=== PATIENT | male | born 1950 | race Caucasian/White ===

== ENCOUNTER → 2021-06-12 | Outpatient (REF) | payer SELFPAY ==
[2021-06-12 09:15] LABS: Absolute Lymphocyte Count 1.33 X10^3/uL (0.83-4.51); Absolute Neutrophil Count 5.6 X10^3/uL (2.0-7.7); Basophil# 0.09 X10^3/uL; Basophil% 1.1 % (0-1); Eosinophil# 0.29 X10^3/uL; Eosinophils% 3.5 % (0-5); Hematocrit 40.7 % (40-54); Hemoglobin 13.4 g/dL (13.0-16.5); Lymphocyte # 1.33 X10^3/ul (0.83-4.51); Lymphocyte % 16.2 % (19-41); Mean Corp Hgb Conc 32.9 g/dL (32-36); Mean Corpuscular Hgb 30.5 pg (27.0-32.0); Mean Corpuscular Volume 92.7 fL (80-94); Mean Platelet Vol. 9.8 fl (6.2-12.0); Monocyte# 0.87 X10^3/uL; Monocyte% 10.6 % (0-10); NRBC Flagged by Analyzer 0 % (0-5); Neutrophil # 5.56 X10^3/uL (2.7-7.7); Platelet Count 314 K/mm3 (150-450); RBC Distribution Width CV 14.6 % (11.6-14.6); RBC Distribution Width SD 50.1 fl (35.1-43.9); Red Blood Count 4.39 M/mm3 (4.6-6.2); White Blood Count 8.2 K/mm3 (4.4-11.0)
[2021-06-12 09:29] LABS: Anion Gap 6 (5-15); BUN 16 mg/dL (7-18); BUN/Creat Ratio 13.4 RATIO (10-20); Calcium,Total 9.3 mg/dL (8.5-10.1); Chloride 109 mmol/L (98-107); Creatinine, Serum 1.19 mg/dL (0.70-1.30); EST Glomerular Filtration Rate 64 mL/min (>60); Est Glom Filt Rate - Afr Amer 78 mL/min (>60); Glucose 116 mg/dL (74-106); Potassium 4.5 mmol/L (3.5-5.1); Sodium Level 139 mmol/L (136-145)
== END | disposition home or self-care (01) ==
LOC: OLS.SW1020 04:00
PROVIDERS: PCP Preventive Medicine Occupational Medicine; Referring Provider Internal Medicine; Visit Provider Internal Medicine
DX: I11.0 Hypertensive heart disease with heart failure (principal); I50.9 Heart failure, unspecified; I48.91 Unspecified atrial fibrillation
CPT/HCPCS: 36415; 80048; 85025

== ENCOUNTER 2022-01-08 20:35 | Observation (INO) | payer MEDICAID, SELFPAY ==
[2022-01-08 20:39] VITALS: BP 87/53; PULSE 41; RESP 18; TEMP 37.1; O2SAT 98; BMI 25.0
[2022-01-08 20:53] VITALS: BP 82/52; PULSE 40; RESP 16; O2SAT 99
--- NOTE | 2022-01-08 21:07 | EKG12_ITS ---
Test Reason : GEN ILLNESS Blood Pressure : / mmHG Vent. Rate : 041 BPM Atrial Rate : 256 BPM P-R Int : 000 ms QRS Dur : 076 ms QT Int : 532 ms P-R-T Axes : 000 019 062 degrees QTc Int : 438 ms Atrial flutter Nonspecific ST and T wave abnormality Abnormal ECG Confirmed by BENIGNO ASCENCIO, JAGDISH ([id number]), website/blog editor ALONDRA WATKINS ([id number]) on 01/12/2022 1:16:26 PM Referred By: NAYAN Confirmed By:JAGDISH PELAEZ MD
[2022-01-08] MEDS: 0.9% Normal Saline 1,000 ML 1000 ML IV (21:17)
[2022-01-08 21:29] LABS: Absolute Lymphocyte Count 0.99 X10^3/uL (0.83-4.51); Absolute Neutrophil Count 6.9 X10^3/uL (2.0-7.7); Basophil# 0.05 X10^3/uL; Basophil% 0.6 % (0-1); Eosinophil# 0.05 X10^3/uL; Eosinophils% 0.6 % (0-5); Hematocrit 36.5 % (40-54); Hemoglobin 12.1 g/dL (13.0-16.5); Lymphocyte # 0.99 X10^3/ul (0.83-4.51); Lymphocyte % 11.6 % (19-41); Mean Corp Hgb Conc 33.2 g/dL (32-36); Mean Corpuscular Hgb 30.8 pg (27.0-32.0); Mean Corpuscular Volume 92.9 fL (80-94); Monocyte# 0.48 X10^3/uL; Monocyte% 5.6 % (0-10); NRBC Flagged by Analyzer 0 % (0-5); Neutrophil # 6.92 X10^3/uL (2.7-7.7); Neutrophil % 80.7 % (47-70); Platelet Count 309 K/mm3 (150-450); RBC Distribution Width CV 14.2 % (11.6-14.6); RBC Distribution Width SD 48.2 fl (35.1-43.9); Red Blood Count 3.93 M/mm3 (4.6-6.2); White Blood Count 8.6 K/mm3 (4.4-11.0)
[2022-01-08 21:48] LABS: ALB/GLOB Ratio 0.8 RATIO (0.9-2.4); AST(SGOT) 27 U/L (15-37); Alanine Aminotransfer ALT/SGPT 31 U/L (16-61); Albumin, Serum 3.2 g/dL (3.2-5.0); Alkaline Phosphatase 81 U/L (45-117); Anion Gap 6 (5-15); BUN 23 mg/dL (7-18); BUN/Creat Ratio 11.7 RATIO (10-20); Chloride 108 mmol/L (98-107); Creatinine, Serum 1.97 mg/dL (0.70-1.30); EST Glomerular Filtration Rate 36 mL/min (>60); Est Glom Filt Rate - Afr Amer 43 mL/min (>60); Estimated Creatinine Clearance 36.63 ml/min; Globulin 3.8 g/dL (2.2-4.2); Glucose 157 mg/dL (74-106); Potassium 4.4 mmol/L (3.5-5.1); Sodium Level 138 mmol/L (136-145); Troponin-I HS 89 pg/mL (3.0-78.0)
--- NOTE | 2022-01-08 21:49 | RAD_ITS ---
INDICATION: Chest pain EXAMINATION/TECHNIQUE: X-RAY - XR Chest 1 View COMPARISON: None. FINDINGS: LINES/DEVICES: None. LUNGS: Low normal lung volumes. Mild perihilar interstitial thickening. No consolidation or effusion. No pneumothorax. MEDIASTINUM AND CARDIOVASCULAR STRUCTURES: Cardiac silhouette not enlarged. Mild aortic atherosclerosis. BONES AND SOFT TISSUES: Unremarkable. Bilateral glenohumeral and acromioclavicular osteoarthritis RAD/Chest 1 View (Portable) IMPRESSION: Low lung volumes with mild interstitial crowding or trace edema. No evidence of consolidative pneumonia Electronically Signed: Trevon Charles MD at 22:12 EDT ,
[2022-01-08 22:27] VITALS: BP 121/55; PULSE 39; RESP 16; O2SAT 96
[2022-01-08 22:33] LABS: Bacteria 0 SEEN /hpf (None Seen); Mucous, Urine 0 SEEN /hpf (<or=2+)
[2022-01-08 23:00] VITALS: BP 103/78; PULSE 38; RESP 16; O2SAT 98
[2022-01-08 23:05] LABS: Color, Urine Yellow (Yellow); Glucose, Dipstick Normal (Normal); Ketone-Dipstick 5 mg/dl (Negative); Leukocyte Esterase-Dipstick 25 /ul (Negative); Nitrite-Dipstick Negative (Negative); Occult Blood-Urine 10 /ul (Negative); Protein-Dipstick 30 mg/dl (Negative); Specific Gravity, Urine 1.025 (1.002-1.030); Urine Bilirubin Dipstick 1 mg/dL (Negative); Urine Clarity Sl. Cloudy (Clear); Urine Urobilinogen 1 mg/dl (Normal)
[2022-01-08 23:11] LABS: Red Blood Cells-Urine 0-5 SEEN /hpf (0-5); Squamous Epithelial Cells - UA 0-5 SEEN /hpf (0-5); White Blood Cells 0-5 SEEN /hpf (0-5)
[2022-01-08 23:12] LABS: Amorphous Sediment 1+ URATE
[2022-01-08] MEDS: Ondansetron 4 MG/2 ML Vial IV (23:28)
--- NOTE | 2022-01-08 23:29 | EX.ED.DYSGE1 ---
HPI History of Present Illness Chief Complaint: General Illness Informant: patient Onset/Context/Timing Onset: Today Context: Gradual Onset Timing: Continuous Quality: Burning Location: Generalized Worsened by: Nothing Relieved by: Nothing Narrative Narrative: Patient presents with bradycardia and generalized pain that began today. Patient states he hurts all over. Patient describes his pain as burning. Patient states nothing makes it better and nothing makes it worse. Patient admits to some lightheadedness. Patient admits to some diarrhea. Patient denies any nausea or vomiting. Patient denies any shortness of breath or cough. Patient denies any palpitations. Patient denies any fevers or chills. Patient apparently had a positive COVID-19 test at the [facility]. [facility] Medical History Anemia Anxiety Atrial flutter CHF (congestive heart failure) COVID-19 Fracture of first lumbar vertebra HTN (hypertension) Hyperlipidemia YULIANA (obstructive sleep apnea) Other cervical disc degeneration, unspecified cervical region Syncope and collapse TIA (transient ischemic attack) Home Medications apixaban 5 mg tablet 5 mg PO BID 01/08/22 [History Last Taken Unknown] buspirone 5 mg tablet 5 mg PO DAILY 01/08/22 [History Last Taken Unknown] clonidine HCl 0.1 mg tablet 0.1 mg PO BID 01/08/22 [History Last Taken Unknown] diltiazem HCl 360 mg capsule,extended release 24 hr 360 mg PO DAILY 01/08/22 [History Last Taken Unknown] folic acid 1 mg tablet 1 mg PO DAILY 01/08/22 [History Last Taken Unknown] lisinopril 40 mg tablet 40 mg PO DAILY 01/08/22 [History Last Taken Unknown] metoprolol succinate 25 mg capsule sprinkle, ext. release 24 hr 25 mg PO BID 01/08/22 [History Last Taken Unknown] pantoprazole 40 mg tablet,delayed release 40 mg PO DAILY 01/08/22 [History Last Taken Unknown] sertraline 50 mg tablet (Zoloft) 50 mg PO DAILY 01/08/22 [History Last Taken Unknown] thiamine HCl (vitamin B1) 100 mg tablet 100 mg PO DAILY 01/08/22 [History Last Taken Unknown] Allergy/AdvReac Type Severity Reaction Status Date / Time amlodipine Allergy NEEDS Verified 01/08/22 20:38 FOLLOW-UP amoxicillin [From Amoxil] Allergy NEEDS Verified 01/08/22 20:38 FOLLOW-UP erythromycin base Allergy NEEDS Verified 01/08/22 20:38 FOLLOW-UP famotidine [From Pepcid] Allergy NEEDS Verified 01/08/22 20:38 FOLLOW-UP fish oil Allergy NEEDS Verified 01/08/22 20:38 FOLLOW-UP hydrochlorothiazide Allergy NEEDS Verified 01/08/22 20:38 FOLLOW-UP hydroxyzine Allergy NEEDS Verified 01/08/22 20:38 FOLLOW-UP lorazepam Allergy NEEDS Verified 01/08/22 20:38 FOLLOW-UP Social History Smoking Status: Never smoker ROS ROS ED Constitutional Constitutional ED: Denies chills or fever(s) Eyes Eyes: Reports blurry vision; Denies diplopia ENT ENT ED: Reports sore throat; Denies rhinorrhea Cardiovascular Cardiovascular: Reports chest pain; Denies palpitations Respiratory/Chest Respiratory/Chest: Denies cough or dyspnea Gastrointestinal Gastrointestinal: Reports abdominal pain and diarrhea; Denies nausea or vomiting Genitourinary Genitourinary ED: Denies dysuria or hematuria Musculoskeletal Musculoskeletal: Reports back pain and neck pain Integumentary Denies abscess or rash Neurologic Neurologic: Reports headache(s); Denies weakness Allergic/Immunologic Allergic/Immunologic ED: Denies mouth swelling or urticaria EXAM Physical Exam Const Vital Signs: 01/08/22 20:39 01/08/22 20:42 01/08/22 20:53 Temperature 98.7 F Temperature Source Temporal Pulse Rate 41 L 40 L Respiratory Rate 18 16 Respiratory Effort Normal Respiratory Pattern Normal Blood Pressure 87/53 L 82/52 L Blood Pressure Mean 64 62 Pulse Ox 98 99 Oxygen Delivery Method Room Air Room Air 01/08/22 22:27 01/08/22 23:00 01/08/22 23:39 Temperature 98.0 F Temperature Source Temporal Pulse Rate 39 L 38 L 58 L Respiratory Rate 16 16 20 H Respiratory Effort Respiratory Pattern Blood Pressure 121/55 H 103/78 134/75 H Blood Pressure Mean 77 86 94 Pulse Ox 96 98 94 Oxygen Delivery Method Room Air Room Air Room Air Positive well nourished and well developed General Appearance ED: well developed and NAD HEENT Reports dry mucous membranes Mouth ED: Yes dry mucous membranes Mouth: dry mucous membranes Neck supple and no JVD Resp normal respiratory effort and clear to auscultation bilaterally Cardio Rate: bradycardia Rhythm: abnormal rhythm irregularly irregular GI normal to inspection, nondistended, normoactive bowel sounds, non-tender, non-distended and hepatosplenomegaly Palpation: soft Neuro CN's II-XII intact bilaterally and no sensory deficits noted Sensorium / Orientation: alert Motor Exam: general weakness Psych mental status grossly normal MDM MDM MDM Narrative Medical decision making narrative: Patient was given IV fluids. CBC shows a mild anemia with a hemoglobin of 12.1 and hematocrit 36.5. Comprehensive metabolic profile shows a BUN of 23 and creatinine of 1.97. These were increased from previous results. Lactate was slightly elevated 2.3. High-sensitivity troponin was slightly elevated at 89. Urinalysis does not show any evidence of urinary tract infection or hematuria. Portable 1 view chest x-ray was obtained. On my interpretation, lung tracy are diminished. There is normal cardiac silhouette. Bony thorax is normal. There is no acute process noted. Radiologist also interpreted the x-ray and agrees. Case was discussed with cardiology, Dr. Soares. He had no further recommendations. Patient's med list was reviewed. Patient is on Cardizem and metoprolol. These will be withheld. Case was discussed with hospitalist, Dr. Alvarado. She will admit the patient to PCU. Patient understood and was agreeable with the plan. All questions were answered. Lab Data Attestation: I reviewed the patient's lab results. Labs: Laboratory Results - last 24 hr 01/08/22 01/08/22 01/08/22 20:50 21:00 21:00 WBC 8.6 RBC 3.93 L Hgb 12.1 L Hct 36.5 L MCV 92.9 MCH 30.8 MCHC 33.2 RDW Std Deviation 48.2 H RDW Coeff of Roberto 14.2 Plt Count 309 MPV 10.0 Immature Gran % (Auto) 0.900 Neut % (Auto) 80.7 H Lymph % (Auto) 11.6 L [place] % (Auto) 5.6 Eos % (Auto) 0.6 Baso % (Auto) 0.6 Absolute Neuts (auto) 6.9 Absolute Lymphs (auto) 0.99 Nucleated RBC % 0 Sodium 138 Potassium 4.4 Chloride 108 H Carbon Dioxide 24.0 Anion Gap 6 BUN 23 H Creatinine 1.97 H Estim Creat Clear Calc 36.63 Est GFR (MDRD) Af Amer 43 L Est GFR (MDRD) Non-Af 36 L BUN/Creatinine Ratio 11.7 Glucose 157 H Lactic Acid 2.3 H* Calcium 8.0 L Total Bilirubin 0.40 AST 27 ALT 31 Alkaline Phosphatase 81 Troponin I High Sens 89 H Total Protein 7.0 Albumin 3.2 Globulin 3.8 Albumin/Globulin Ratio 0.8 L Urine Color Urine Clarity Urine pH Ur Specific [place] Urine Protein Urine Glucose (UA) Urine Ketones Urine Occult Blood Urine Nitrite Urine Bilirubin Urine Urobilinogen Ur Leukocyte Esterase Urine RBC Urine WBC Ur Squamous Epith Cells Amorphous Sediment Urine Bacteria Urine Mucus 01/08/22 22:30 WBC RBC Hgb Hct MCV MCH MCHC RDW Std Deviation RDW Coeff of Roberto Plt Count MPV Immature Gran % (Auto) Neut % (Auto) Lymph % (Auto) [place] % (Auto) Eos % (Auto) Baso % (Auto) Absolute Neuts (auto) Absolute Lymphs (auto) Nucleated RBC % Sodium Potassium Chloride Carbon Dioxide Anion Gap BUN Creatinine Estim Creat Clear Calc Est GFR (MDRD) Af Amer Est GFR (MDRD) Non-Af BUN/Creatinine Ratio Glucose Lactic Acid Calcium Total Bilirubin AST ALT Alkaline Phosphatase Troponin I High Sens Total Protein Albumin Globulin Albumin/Globulin Ratio Urine Color Yellow Urine Clarity Sl. Cloudy Urine pH 5.0 Ur Specific [place] 1.025 Urine Protein 30 H Urine Glucose (UA) Normal Urine Ketones 5 H Urine Occult Blood 10 H Urine Nitrite Negative Urine Bilirubin 1 H Urine Urobilinogen 1 H Ur Leukocyte Esterase 25 H Urine RBC 0-5 SEEN Urine WBC 0-5 SEEN Ur Squamous Epith Cells 0-5 SEEN Amorphous Sediment 1+ URATE Urine Bacteria 0 SEEN Urine Mucus 0 SEEN Radiography Chest X-Ray - ED: 1 View, Read by ED Physician, Read by Radiologist and No Acute Disease Diagnostic Testing: Clinical Impression(s) from Imaging Studies Chest X-Ray 01/08/22 21:49 IMPRESSION: Low lung volumes with mild interstitial crowding or trace edema. No evidence of consolidative pneumonia Electronically Signed: Trevon Charles MD at 22:12 EDT Reading Location ID and State: [facility] / [place] Tel , Service support , EKG Initial EKG: Attestation: I personally reviewed and interpreted this EKG as follows: Interpretation: Atrial Flutter (41) and Non-Specific ST Changes Prior EKG tracings: not available for review Prior: No Prior Discharge Plan Dx/Rx/DC Orders Clinical Impression: Bradycardia, Atrial flutter, Acute kidney injury Disposition Disposition: Acute Care Hospital [facility]
[2022-01-08 23:39] VITALS: BP 134/75; PULSE 58; RESP 20; TEMP 36.7; O2SAT 94
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
[2022-01-08 23:53] VITALS: BMI 23.8
[2022-01-09] VITALS (17 sets, daily range): BP systolic 132–170; BP diastolic 70–113; PULSE 64–136; RESP 12–18; TEMP 36.2–37.1; O2SAT 97–99
[2022-01-09 00:06] LABS: Lactic Acid 2.3 mmol/L (0.4-1.9)
[2022-01-09 00:32] LABS: Thyroid Stim Hormone (TSH) 4.78 uIU/mL (0.358-3.74)
[2022-01-09 01:12] LABS: Reflex Lactate? Y
[2022-01-09] MEDS: Acetaminophen 325 MG Tablet 650 MG PO ×2 (01:49→13:14)
[2022-01-09] MEDS: Lactated Ringers 1,000 ML 100 ML IV ×2 (01:49→11:20)
[2022-01-09 02:00] LABS: Lactic Acid 1.4 mmol/L (0.4-1.9); Troponin-I HS 54 pg/mL (3.0-78.0)
[2022-01-09 03:24] LABS: Absolute Lymphocyte Count 0.76 X10^3/uL (0.83-4.51); Absolute Neutrophil Count 5.5 X10^3/uL (2.0-7.7); Basophil# 0.01 X10^3/uL; Basophil% 0.2 % (0-1); Hematocrit 35.5 % (40-54); Hemoglobin 11.8 g/dL (13.0-16.5); Lymphocyte # 0.76 X10^3/ul (0.83-4.51); Lymphocyte % 11.4 % (19-41); Mean Corp Hgb Conc 33.2 g/dL (32-36); Mean Corpuscular Hgb 30.7 pg (27.0-32.0); Mean Corpuscular Volume 92.4 fL (80-94); Mean Platelet Vol. 9.6 fl (6.2-12.0); Monocyte# 0.31 X10^3/uL; Monocyte% 4.7 % (0-10); NRBC Flagged by Analyzer 0 % (0-5); Neutrophil # 5.52 X10^3/uL (2.7-7.7); Neutrophil % 83.1 % (47-70); Platelet Count 226 K/mm3 (150-450); RBC Distribution Width CV 14.2 % (11.6-14.6); RBC Distribution Width SD 47.7 fl (35.1-43.9); Red Blood Count 3.84 M/mm3 (4.6-6.2); White Blood Count 6.6 K/mm3 (4.4-11.0)
[2022-01-09 03:54] LABS: Troponin-I HS 48 pg/mL (3.0-78.0)
[2022-01-09 03:56] LABS: ALB/GLOB Ratio 0.8 RATIO (0.9-2.4); AST(SGOT) 48 U/L (15-37); Alanine Aminotransfer ALT/SGPT 54 U/L (16-61); Albumin, Serum 3.1 g/dL (3.2-5.0); Alkaline Phosphatase 105 U/L (45-117); Anion Gap 7 (5-15); BUN 24 mg/dL (7-18); BUN/Creat Ratio 15.4 RATIO (10-20); Calcium,Total 8.1 mg/dL (8.5-10.1); Chloride 110 mmol/L (98-107); Creatinine, Serum 1.56 mg/dL (0.70-1.30); EST Glomerular Filtration Rate 47 mL/min (>60); Est Glom Filt Rate - Afr Amer 57 mL/min (>60); Estimated Creatinine Clearance 46.26 ml/min; Globulin 3.7 g/dL (2.2-4.2); Glucose 145 mg/dL (74-106); Magnesium 2.3 mg/dL (1.6-2.6); Phosphorus 3.4 mg/dL (2.5-4.9); Potassium 4.4 mmol/L (3.5-5.1); Protein, Total 6.8 g/dL (6.4-8.2); Sodium Level 137 mmol/L (136-145)
--- NOTE | 2022-01-09 09:31 | CASEMGMT ---
Addendum entered by Venessa Baltazar 01/09/22 09:51: Discharge Remote Sensing Advisor Maribeth from the [facility] reached out and patient would need pre-cert to be able to return to [facility]. Ryan MCWILLIAMS Groundskeeping Maintenance Original Note: Discharge Remote Sensing Advisor This commercial lines underwriter sent updates to Maribeth at the [facility]. Ryan MCWILLIAMS Groundskeeping Maintenance
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
[2022-01-09] MEDS: dexAMETHasone 4 MG Tablet 6 MG PO (11:29)
[2022-01-09] MEDS: Pantoprazole Sodium 40 MG Tablet PO (11:30)
[2022-01-09] MEDS: cloNIDine HCl 0.1 MG Tablet PO ×2 (11:30→20:36)
[2022-01-09] MEDS: Thiamine Hydrochloride 100 MG Tablet PO (11:30)
[2022-01-09] MEDS: Folic Acid 1 MG Tablet PO (11:30)
[2022-01-09] MEDS: APIXABAN 5 MG TABLET PO ×2 (11:30→20:36)
[2022-01-09] MEDS: Lisinopril 40 MG Tablet PO (11:30)
[2022-01-09] MEDS: busPIRone 5 MG Tablet PO (11:30)
[2022-01-09] MEDS: Sertraline 50 MG Tablet PO (11:30)
--- NOTE | 2022-01-09 12:11 | CON.PCM.CA_ITS ---
Documented by User: Reynaldo Markham MANAGER ACTION, MANAGER ACTION-C 01/09/22 12:20 Assessment & Plan Assessment/Plan (1) Atrial flutter: PLAN: He appears to have a history of underlying atrial flutter. It is encouraging that his high sensitive troponin has been negative x2. We will continue to hold off on rate limiting medications. It is also encouraging that his heart rate is improved since stopping both metoprolol succinate and diltiazem. We will reconsider resuming metoprolol succinate if he develops increased heart rates. We will continue to monitor for ongoing bradycardia that may be associated with side effect of clonidine therapy. He will continue Eliquis for CVA protection. If he continues to have bradycardia despite rate limiting medications and associated symptoms, we will consider permanent pacemaker placement, that may include Micra device. (2) Bradycardia: (3) COVID-19: PLAN: Plan Patient's case was reviewed with Dr. Monzon. See his dictation for further details regarding plan. HPI Consult Data Date of Consult: 01/09/22 HPI Narrative HPI Narrative: MONICA HAN, is a 71 M who presented to the emergency department 01/08/2022 from a alf ([facility]) with general illness and bradycardia. He has a past medical history of atrial flutter, congestive heart failure, hypertension, hyperlipidemia, YULIANA, and TIA. Prior to presentation he acknowledged diarrhea, lightheadedness, and positive COVID-19 testing. His EKG showed atrial flutter at a rate of 41 bpm. His home medication of metoprolol and Cardizem was held. Due to blood pressure 87/53 he received IV fluids and blood pressure improved. His initial troponin was noted to be 89. He was admitted for further evaluation. Cardiology was consulted due to bradycardia and elevated troponin. [facility] Medical History Anemia Anxiety Atrial flutter CHF (congestive heart failure) COVID-19 Fracture of first lumbar vertebra HTN (hypertension) Hyperlipidemia YULIANA (obstructive sleep apnea) Other cervical disc degeneration, unspecified cervical region Syncope and collapse TIA (transient ischemic attack) Home Medications apixaban 5 mg tablet 5 mg PO BID 01/08/22 [History Last Taken Unknown] buspirone 5 mg tablet 5 mg PO DAILY 01/08/22 [History Last Taken Unknown] clonidine HCl 0.1 mg tablet 0.1 mg PO BID 01/08/22 [History Last Taken Unknown] diltiazem HCl 360 mg capsule,extended release 24 hr 360 mg PO DAILY 01/08/22 [History Last Taken Unknown] folic acid 1 mg tablet 1 mg PO DAILY 01/08/22 [History Last Taken Unknown] lisinopril 40 mg tablet 40 mg PO DAILY 01/08/22 [History Last Taken Unknown] metoprolol succinate 25 mg capsule sprinkle, ext. release 24 hr 25 mg PO BID 01/08/22 [History Last Taken Unknown] pantoprazole 40 mg tablet,delayed release 40 mg PO DAILY 01/08/22 [History Last Taken Unknown] sertraline 50 mg tablet (Zoloft) 50 mg PO DAILY 01/08/22 [History Last Taken U nknown] thiamine HCl (vitamin B1) 100 mg tablet 100 mg PO DAILY 01/08/22 [History Last Taken Unknown] Allergy/AdvReac Type Severity Reaction Status Date / Time amlodipine Allergy NEEDS Verified 01/08/22 20:38 FOLLOW-UP amoxicillin [From Amoxil] Allergy NEEDS Verified 01/08/22 20:38 FOLLOW-UP erythromycin base Allergy NEEDS Verified 01/08/22 20:38 FOLLOW-UP famotidine [From Pepcid] Allergy NEEDS Verified 01/08/22 20:38 FOLLOW-UP fish oil Allergy NEEDS Verified 01/08/22 20:38 FOLLOW-UP hydrochlorothiazide Allergy NEEDS Verified 01/08/22 20:38 FOLLOW-UP hydroxyzine Allergy NEEDS Verified 01/08/22 20:38 FOLLOW-UP lorazepam Allergy NEEDS Verified 01/08/22 20:38 FOLLOW-UP Family History unable to obtain Surgical History H/O knee surgery Social History (Updated 01/09/22 @ 00:[address] Jerrica Alvarado, ) housing: alf Smoking Status: Never smoker alcohol intake: former substance use type: does not use ROS ROS Narrative Deferred due to COVID-19 precautions and attempt to reduce the spread of COVID- 19. Recommendations will be made based on evaluation of patient's electronic medical chart, paper chart, telemetry, and documentation from other providers/staff. Physical Exam Narrative Physical exam deferred due to COVID-19 precautions and attempt to reduce spread of COVID-19. Risk Stratification Risk Stratification Applicable: Yes Age >/= 65: Yes >/= 3 CAD Risk Factors (HTN, HLD, DM, family hx of CAD, or current smoker): No Aspirin Use in the Past 7 Days: No Severe Angina (>/= episodes in 24 hours): No EKG ST Changes >/= 0.5mm: No Positive Cardiac Marker: No RODRIGUE Risk Stratification Score: 1 RODRIGUE % Risk: 5% Risk Objective Data Vital Signs: Vital Signs Temp Pulse Resp BP Pulse Ox O2 Del Method 97.3 F L 64 16 149/76 H 99 Room Air 01/09/22 11:12 01/09/22 11:12 01/09/22 11:12 01/09/22 11:12 01/09/22 11:12 01/09/22 11:12 Oxygen Delivery Method Room Air Weight: 171 lb 4.787 oz Body Mass Index (BMI) 23.8 Intake & Output: Intake and Output for Last 24 Hours 01/07/22 01/08/22 01/09/22 23:59 23:59 23:59 Intake Total 1000 / 1000 951.67 / 951.67 Output Total 200 / 200 Balance 1000 / 1000 751.67 / 751.67 Lab / Micro Data Result Diagrams: 01/09/22 03:17 01/09/22 03:17 Labs: Laboratory Results - last 24 hr 01/08/22 20:50: Lactic Acid 2.3 H* 01/08/22 21:00: WBC 8.6, RBC 3.93 L, Hgb 12.1 L, Hct 36.5 L, MCV 92.9, MCH 30.8, MCHC 33.2, RDW Std Deviation 48.2 H, RDW Coeff of Roberto 14.2, Plt Count 309, MPV 10.0, Immature Gran % (Auto) 0.900, Neut % (Auto) 80.7 H, Lymph % (Auto) 11.6 L, Power % (Auto) 5.6, Eos % (Auto) 0.6, Baso % (Auto) 0.6, Absolute Neuts (auto) 6.9, Absolute Lymphs (auto) 0.99, Nucleated RBC % 0 01/08/22 21:00: Sodium 138, Potassium 4.4, Chloride 108 H, Carbon Dioxide 24.0, Anion Gap 6, BUN 23 H, Creatinine 1.97 H, Estim Creat Clear Calc 36.63, Est GFR (MDRD) Af Amer 43 L, Est GFR (MDRD) Non-Af 36 L, BUN/Creatinine Ratio 11.7, Glucose 157 H, Calcium 8.0 L, Total Bilirubin 0.40, AST 27, ALT 31, Alkaline Phosphatase 81, Troponin I High Sens 89 H, Total Protein 7.0, Albumin 3.2, Globulin 3.8, Albumin/Globulin Ratio 0.8 L 01/08/22 21:00: TSH 4.78 H 01/08/22 22:30: Urine Color Yellow, Urine Clarity Sl. Cloudy, Urine pH 5.0, Ur Specific [place] 1.025, Urine Protein 30 H, Urine Glucose (UA) Normal, Urine Ketones 5 H, Urine Occult Blood 10 H, Urine Nitrite Negative, Urine Bilirubin 1 H, Urine Urobilinogen 1 H, Ur Leukocyte Esterase 25 H, Urine RBC 0-5 SEEN, Urine WBC 0-5 SEEN, Ur Squamous Epith Cells 0-5 SEEN, Amorphous Sediment 1+ URATE, Urine Bacteria 0 SEEN, Urine Mucus 0 SEEN 01/08/22 23:46: COVID-19 (LELE) Detected 01/09/22 01:30: Troponin I High Sens 54 01/09/22 01:30: Lactic Acid 1.4 01/09/22 03:17: WBC 6.6, RBC 3.84 L, Hgb 11.8 L, Hct 35.5 L, MCV 92.4, MCH 30.7, MCHC 33.2, RDW Std Deviation 47.7 H, RDW Coeff of Roberto 14.2, Plt Count 226, MPV 9.6, Immature Gran % (Auto) 0.600, Neut % (Auto) 83.1 H, Lymph % (Auto) 11.4 L, Power % (Auto) 4.7, Eos % (Auto) 0.0, Baso % (Auto) 0.2, Absolute Neuts (auto) 5.5, Absolute Lymphs (auto) 0.76 L, Nucleated RBC % 0 01/09/22 03:17: Sodium 137, Potassium 4.4, Chloride 110 H, Carbon Dioxide 20.0 L , Anion Gap 7, BUN 24 H, Creatinine 1.56 H, Estim Creat Clear Calc 46.26, Est GFR (MDRD) Af Amer 57 L, Est GFR (MDRD) Non-Af 47 L, BUN/Creatinine Ratio 15.4, Glucose 145 H, Calcium 8.1 L, Phosphorus 3.4, Magnesium 2.3, Total Bilirubin 0.40, AST 48 H, ALT 54, Alkaline Phosphatase 105, Total Protein 6.8, Albumin 3.1 L, Globulin 3.7, Albumin/Globulin Ratio 0.8 L 01/09/22 03:17: Troponin I High Sens 48 Micro: Microbiology 01/08/22 21:20 Nasal Secretion SARS-CoV-2 & FLU Antigen (Rapid) - Final Cardiology Labs/Tests 01/08/22 20:50: Lactic Acid 2.3 H* 01/08/22 21:00: WBC 8.6, RBC 3.93 L, Hgb 12.1 L, Hct 36.5 L, MCV 92.9, MCH 30.8, MCHC 33.2, Plt Count 309, MPV 10.0, Immature Gran % (Auto) 0.900, Neut % (Auto) 80.7 H, Lymph % (Auto) 11.6 L, Power % (Auto) 5.6, Eos % (Auto) 0.6, Baso % (Auto) 0.6, Absolute Neuts (auto) 6.9, Nucleated RBC % 0 01/08/22 21:00: Sodium 138, Potassium 4.4, Chloride 108 H, Carbon Dioxide 24.0, Anion Gap 6, BUN 23 H, Creatinine 1.97 H, Est GFR (MDRD) Af Amer 43 L, Est GFR (MDRD) Non-Af 36 L, BUN/Creatinine Ratio 11.7, Glucose 157 H, Calcium 8.0 L, Total Bilirubin 0.40 01/08/22 22:30: Urine Color Yellow, Urine Clarity Sl. Cloudy, Urine pH 5.0, Ur Specific [place] 1.025, Urine Protein 30 H, Urine Glucose (UA) Normal, Urine Ketones 5 H, Urine Occult Blood 10 H, Urine Nitrite Negative, Urine Bilirubin 1 H, Urine Urobilinogen 1 H, Ur Leukocyte Esterase 25 H, Urine RBC 0-5 SEEN, Urine WBC 0-5 SEEN 01/09/22 01:30: Lactic Acid 1.4 01/09/22 03:17: WBC 6.6, RBC 3.84 L, Hgb 11.8 L, Hct 35.5 L, MCV 92.4, MCH 30.7, MCHC 33.2, Plt Count 226, MPV 9.6, Immature Gran % (Auto) 0.600, Neut % (Auto) 83.1 H, Lymph % (Auto) 11.4 L, Power % (Auto) 4.7, Eos % (Auto) 0.0, Baso % (Auto) 0.2, Absolute Neuts (auto) 5.5, Nucleated RBC % 0 01/09/22 03:17: Sodium 137, Potassium 4.4, Chloride 110 H, Carbon Dioxide 20.0 L , Anion Gap 7, BUN 24 H, Creatinine 1.56 H, Est GFR (MDRD) Af Amer 57 L, Est GFR (MDRD) Non-Af 47 L, BUN/Creatinine Ratio 15.4, Glucose 145 H, Calcium 8.1 L, Phosphorus 3.4, Magnesium 2.3, Total Bilirubin 0.40 Rhythm: EKG: ECHO: Stress Test: Cardiac Cath: PCI: CT Surgery: Holter monitor: EPS: PPM: CXR: Chest CT Scan: Radiography Diagnostic Testing: Radiology Impression Chest X-Ray 01/08/22 21:49 IMPRESSION: Low lung volumes with mild interstitial crowding or trace edema. No evidence of consolidative pneumonia Electronically Signed: Trevon Charles MD at 22:12 EDT Reading Location ID and State: [id number] [facility] Tel , Service support , Documented by User: Dr. Clarisse Monzon MD 01/09/22 13:47 Assessment & Plan Assessment/Plan (1) Atrial flutter: (2) Bradycardia: (3) COVID-19: PLAN: Plan Patient's case was reviewed with Dr. Monzon. See his dictation for further details regarding plan. I independently reviewed the medical record of this patient including EKG cardiac monitors current cardiac medication and I formulated cardiac care plan as per midlevel documentation we will continue current medical treatment. Patient can be set up for an outpatient follow-up with cardiology team. Echocardiogram to evaluate his LV function and to continue on anticoagulation and rate control for atrial fibrillation/atrial flutter HPI Consult Data Date of Consult: 01/09/22 [facility] Medical History Anemia Anxiety Atrial flutter CHF (congestive heart failure) COVID-19 Fracture of first lumbar vertebra HTN (hypertension) Hyperlipidemia YULIANA (obstructive sleep apnea) Other cervical disc degeneration, unspecified cervical region Syncope and collapse TIA (transient ischemic attack) Home Medications apixaban 5 mg tablet 5 mg PO BID 01/08/22 [History Last Taken Unknown] buspirone 5 mg tablet 5 mg PO DAILY 01/08/22 [History Last Taken Unknown] clonidine HCl 0.1 mg tablet 0.1 mg PO BID 01/08/22 [History Last Taken Unknown] diltiazem HCl 360 mg capsule,extended release 24 hr 360 mg PO DAILY 01/08/22 [History Last Taken Unknown] folic acid 1 mg tablet 1 mg PO DAILY 01/08/22 [History Last Taken Unknown] lisinopril 40 mg tablet 40 mg PO DAILY 01/08/22 [History Last Taken Unknown] metoprolol succinate 25 mg capsule sprinkle, ext. release 24 hr 25 mg PO BID 01/08/22 [History Last Taken Unknown] pantoprazole 40 mg tablet,delayed release 40 mg PO DAILY 01/08/22 [History Last Taken Unknown] sertraline 50 mg tablet (Zoloft) 50 mg PO DAILY 01/08/22 [History Last Taken Unknown] thiamine HCl (vitamin B1) 100 mg tablet 100 mg PO DAILY 01/08/22 [History Last T aken Unknown] Allergy/AdvReac Type Severity Reaction Status Date / Time amlodipine Allergy NEEDS Verified 01/08/22 20:38 FOLLOW-UP amoxicillin [From Amoxil] Allergy NEEDS Verified 01/08/22 20:38 FOLLOW-UP erythromycin base Allergy NEEDS Verified 01/08/22 20:38 FOLLOW-UP famotidine [From Pepcid] Allergy NEEDS Verified 01/08/22 20:38 FOLLOW-UP fish oil Allergy NEEDS Verified 01/08/22 20:38 FOLLOW-UP hydrochlorothiazide Allergy NEEDS Verified 01/08/22 20:38 FOLLOW-UP hydroxyzine Allergy NEEDS Verified 01/08/22 20:38 FOLLOW-UP lorazepam Allergy NEEDS Verified 01/08/22 20:38 FOLLOW-UP Family History unable to obtain Surgical History H/O knee surgery Social History (Updated 01/09/22 @ 00:[address] Jerrica Alvarado, DO) housing: alf Smoking Status: Never smoker alcohol intake: former substance use type: does not use Risk Stratification Age >/= 65: Yes RODRIGUE Risk Stratification Score: 1 RODRIGUE % Risk: 5% Risk Lab / Micro Data Result Diagrams: 01/09/22 03:17 01/09/22 03:17
[2022-01-09] MEDS: Metoprolol Tartrate 5 MG/5 ML Vial 2.5 MG IV (13:14)
[2022-01-09] MEDS: hydrALAZINE 20 MG/ML Vial 10 MG IV (17:25)
[2022-01-09] MEDS: 0.9% Saline Lock 10 ML Syringe IV (18:42)
[2022-01-09] MEDS: Metoprolol Tartrate 5 MG/5 ML Vial IV (18:42)
[2022-01-10] VITALS (11 sets, daily range): BP systolic 113–152; BP diastolic 61–97; PULSE 70–139; RESP 16–19; TEMP 35.9–37.2; O2SAT 95–98
[2022-01-10] MEDS: dilTIAZem CD 120 MG Capsule PO ×3 (00:18→20:48)
[2022-01-10] MEDS: MELATONIN 10 MG TABLET PO (00:18)
[2022-01-10] MEDS: Lisinopril 40 MG Tablet PO (08:26)
[2022-01-10] MEDS: busPIRone 5 MG Tablet PO (08:26)
[2022-01-10] MEDS: 0.9% Saline Lock 10 ML Syringe IV ×2 (08:26→20:46)
[2022-01-10] MEDS: Thiamine Hydrochloride 100 MG Tablet PO (08:26)
[2022-01-10] MEDS: Pantoprazole Sodium 40 MG Tablet PO (08:26)
[2022-01-10] MEDS: Folic Acid 1 MG Tablet PO (08:26)
[2022-01-10] MEDS: dexAMETHasone 4 MG Tablet 6 MG PO (08:26)
[2022-01-10] MEDS: Sertraline 50 MG Tablet PO (08:27)
[2022-01-10] MEDS: cloNIDine HCl 0.1 MG Tablet PO ×2 (08:27→20:48)
[2022-01-10] MEDS: APIXABAN 5 MG TABLET PO ×2 (08:27→20:48)
[2022-01-10 08:37] LABS: ALB/GLOB Ratio 0.8 RATIO (0.9-2.4); AST(SGOT) 23 U/L (15-37); Alanine Aminotransfer ALT/SGPT 47 U/L (16-61); Albumin, Serum 3.1 g/dL (3.2-5.0); Alkaline Phosphatase 93 U/L (45-117); Anion Gap 8 (5-15); BUN 18 mg/dL (7-18); BUN/Creat Ratio 17.3 RATIO (10-20); Calcium,Total 8.6 mg/dL (8.5-10.1); Chloride 109 mmol/L (98-107); Creatinine, Serum 1.04 mg/dL (0.70-1.30); EST Glomerular Filtration Rate 75 mL/min (>60); Est Glom Filt Rate - Afr Amer 91 mL/min (>60); Estimated Creatinine Clearance 69.39 ml/min; Globulin 3.7 g/dL (2.2-4.2); Glucose 129 mg/dL (74-106); Potassium 4.2 mmol/L (3.5-5.1); Protein, Total 6.8 g/dL (6.4-8.2); Sodium Level 139 mmol/L (136-145)
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
[2022-01-10] MEDS: Acetaminophen 325 MG Tablet 650 MG PO (20:49)
[2022-01-11] VITALS (12 sets, daily range): BP systolic 125–167; BP diastolic 65–104; PULSE 73–144; RESP 12–18; TEMP 36.1–36.7; O2SAT 98–99
[2022-01-11 07:39] LABS: Absolute Lymphocyte Count 0.79 X10^3/uL (0.83-4.51); Absolute Neutrophil Count 8.9 X10^3/uL (2.0-7.7); Hematocrit 37.5 % (40-54); Hemoglobin 12.4 g/dL (13.0-16.5); Lymphocyte # 0.79 X10^3/ul (0.83-4.51); Lymphocyte % 7.6 % (19-41); Mean Corp Hgb Conc 33.1 g/dL (32-36); Mean Corpuscular Hgb 30.3 pg (27.0-32.0); Mean Corpuscular Volume 91.7 fL (80-94); Monocyte# 0.62 X10^3/uL; NRBC Flagged by Analyzer 0 % (0-5); Neutrophil # 8.94 X10^3/uL (2.7-7.7); Neutrophil % 85.8 % (47-70); Platelet Count 290 K/mm3 (150-450); RBC Distribution Width CV 14.1 % (11.6-14.6); RBC Distribution Width SD 47.1 fl (35.1-43.9); Red Blood Count 4.09 M/mm3 (4.6-6.2); White Blood Count 10.4 K/mm3 (4.4-11.0)
[2022-01-11 07:53] LABS: Anion Gap 8 (5-15); BUN 20 mg/dL (7-18); BUN/Creat Ratio 21.7 RATIO (10-20); Calcium,Total 9.1 mg/dL (8.5-10.1); Chloride 106 mmol/L (98-107); Creatinine, Serum 0.92 mg/dL (0.70-1.30); EST Glomerular Filtration Rate 86 mL/min (>60); Est Glom Filt Rate - Afr Amer 104 mL/min (>60); Estimated Creatinine Clearance 78.44 ml/min; Glucose 135 mg/dL (74-106); Potassium 4.2 mmol/L (3.5-5.1); Sodium Level 140 mmol/L (136-145)
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
[2022-01-11] MEDS: busPIRone 5 MG Tablet PO (10:31)
[2022-01-11] MEDS: Lisinopril 40 MG Tablet PO (10:31)
[2022-01-11] MEDS: Sertraline 50 MG Tablet PO (10:31)
[2022-01-11] MEDS: Pantoprazole Sodium 40 MG Tablet PO (10:31)
[2022-01-11] MEDS: cloNIDine HCl 0.1 MG Tablet PO ×2 (10:31→21:31)
[2022-01-11] MEDS: dexAMETHasone 4 MG Tablet 6 MG PO (10:31)
[2022-01-11] MEDS: Thiamine Hydrochloride 100 MG Tablet PO (10:31)
[2022-01-11] MEDS: dilTIAZem CD 120 MG Capsule PO ×2 (10:31→21:31)
[2022-01-11] MEDS: APIXABAN 5 MG TABLET PO ×2 (10:34→21:31)
[2022-01-11] MEDS: Folic Acid 1 MG Tablet PO (10:34)
[2022-01-11] MEDS: Metoprolol Tartrate 5 MG/5 ML Vial IV (12:52)
[2022-01-11] MEDS: 0.9% Saline Lock 10 ML Syringe IV ×2 (12:52→21:32)
[2022-01-11] MEDS: Metoprolol Tartrate 25 MG Tablet 12.5 MG PO (21:31)
[2022-01-12] VITALS (10 sets, daily range): BP systolic 127–156; BP diastolic 65–94; PULSE 50–116; RESP 16–18; TEMP 35.8–36.6; O2SAT 95–98
--- NOTE | 2022-01-12 07:25 | NURSING ---
Documentation reviewed with Torrie DIOR preceptee
[2022-01-12 08:02] LABS: Absolute Lymphocyte Count 0.81 X10^3/uL (0.83-4.51); Basophil# 0.01 X10^3/uL; Basophil% 0.1 % (0-1); Hematocrit 38.3 % (40-54); Hemoglobin 12.4 g/dL (13.0-16.5); Lymphocyte # 0.81 X10^3/ul (0.83-4.51); Lymphocyte % 7.8 % (19-41); Mean Corp Hgb Conc 32.4 g/dL (32-36); Mean Corpuscular Hgb 29.8 pg (27.0-32.0); Mean Corpuscular Volume 92.1 fL (80-94); Mean Platelet Vol. 9.9 fl (6.2-12.0); Monocyte# 0.57 X10^3/uL; Monocyte% 5.5 % (0-10); NRBC Flagged by Analyzer 0 % (0-5); Neutrophil # 8.99 X10^3/uL (2.7-7.7); Platelet Count 337 K/mm3 (150-450); RBC Distribution Width CV 13.7 % (11.6-14.6); RBC Distribution Width SD 46.7 fl (35.1-43.9); Red Blood Count 4.16 M/mm3 (4.6-6.2); White Blood Count 10.4 K/mm3 (4.4-11.0)
[2022-01-12 09:20] LABS: ALB/GLOB Ratio 0.9 RATIO (0.9-2.4); AST(SGOT) 16 U/L (15-37); Alanine Aminotransfer ALT/SGPT 51 U/L (16-61); Albumin, Serum 3.4 g/dL (3.2-5.0); Alkaline Phosphatase 85 U/L (45-117); Anion Gap 8 (5-15); BUN 24 mg/dL (7-18); BUN/Creat Ratio 24.5 RATIO (10-20); Calcium,Total 9.3 mg/dL (8.5-10.1); Chloride 103 mmol/L (98-107); Creatinine, Serum 0.98 mg/dL (0.70-1.30); EST Glomerular Filtration Rate 80 mL/min (>60); Est Glom Filt Rate - Afr Amer 97 mL/min (>60); Estimated Creatinine Clearance 73.64 ml/min; Globulin 3.8 g/dL (2.2-4.2); Glucose 148 mg/dL (74-106); Protein, Total 7.2 g/dL (6.4-8.2); Sodium Level 136 mmol/L (136-145)
[2022-01-12] MEDS: dexAMETHasone 4 MG Tablet 6 MG PO (09:23)
[2022-01-12] MEDS: busPIRone 5 MG Tablet PO (09:24)
[2022-01-12] MEDS: Folic Acid 1 MG Tablet PO (09:24)
[2022-01-12] MEDS: dilTIAZem CD 120 MG Capsule PO ×2 (09:25→21:21)
[2022-01-12] MEDS: APIXABAN 5 MG TABLET PO ×2 (09:25→21:21)
[2022-01-12] MEDS: Metoprolol Tartrate 25 MG Tablet 12.5 MG PO ×2 (09:25→21:21)
[2022-01-12] MEDS: cloNIDine HCl 0.1 MG Tablet PO ×2 (09:25→21:21)
[2022-01-12] MEDS: Sertraline 50 MG Tablet PO (09:26)
[2022-01-12] MEDS: Pantoprazole Sodium 40 MG Tablet PO (09:26)
[2022-01-12] MEDS: Thiamine Hydrochloride 100 MG Tablet PO (09:26)
[2022-01-12] MEDS: Lisinopril 40 MG Tablet PO (09:26)
--- NOTE | 2022-01-12 09:38 | CASEMGMT ---
SW sent updated information to [place] via [employer]. SW also asked that pre-cert be initiated. Plan: d/c back to [place] pending pre-cert.
--- NOTE | 2022-01-12 15:08 | CASEMGMT ---
SW spoke with patient. Introduced self and role at [facility]. SW asked patient if his plan is to return to [place] at discharge. Patient said that is his plan. Patient declined a list of other facilities. Plan: d/c back to [place] pending pre-cert. Malinda HEADLEY
--- NOTE | 2022-01-12 19:38 | NURSING ---
Charting reviewed with Aracelis Vernon RN
--- NOTE | 2022-01-12 19:55 | PN.HOSP_ITS ---
Subjective Subjective Patient was seen and examined today. Patient told me he does not believe he has COVID-19, patient is currently on room air at this time. He does not complain of any chest pain or shortness of breath. We are currently awaiting precertification for him to return to a shelter facility. Objective Data Objective Data Vital Signs: Vital Signs Temp Pulse Resp BP Pulse Ox O2 Del Method 96.5 F L 79 16 127/65 H 97 Room Air 01/12/22 15:00 01/12/22 15:00 01/12/22 15:00 01/12/22 15:00 01/12/22 15:00 01/12/22 15:00 Oxygen Delivery Method Room Air Weight: 77.7 kg Body Mass Index (BMI) 23.8 Intake & Output: Intake and Output for Last 24 Hours 01/11/22 01/11/22 01/12/22 00:59 23:59 23:59 Intake Total 720 / 720 Output Total 375 / 375 Balance 345 / 345 Lab / Micro Data Result Diagrams: 01/12/22 07:08 01/12/22 07:08 Labs: Laboratory Results - last 24 hr 01/12/22 07:08: WBC 10.4, RBC 4.16 L, Hgb 12.4 L, Hct 38.3 L, MCV 92.1, MCH 29.8 , MCHC 32.4, RDW Std Deviation 46.7 H, RDW Coeff of Roberto 13.7, Plt Count 337, MPV 9.9, Immature Gran % (Auto) 0.600, Neut % (Auto) 86.0 H, Lymph % (Auto) 7.8 L, [place] % (Auto) 5.5, Eos % (Auto) 0.0, Baso % (Auto) 0.1, Absolute Neuts (auto) 9.0 H, Absolute Lymphs (auto) 0.81 L, Nucleated RBC % 0 01/12/22 07:08: Sodium 136, Potassium 4.0, Chloride 103, Carbon Dioxide 25.0, Anion Gap 8, BUN 24 H, Creatinine 0.98, Estim Creat Clear Calc 73.64, Est GFR (MDRD) Af Amer 97, Est GFR (MDRD) Non-Af 80, BUN/Creatinine Ratio 24.5 H, Glucose 148 H, Calcium 9.3, Total Bilirubin 0.60, AST 16, ALT 51, Alkaline Phosphatase 85, Total Protein 7.2, Albumin 3.4, Globulin 3.8, Albumin/Globulin Ratio 0.9 Micro: Microbiology 01/08/22 20:50 Blood Culture (Wb) - Right Wrist Blood Culture - Preliminary No growth in 48 hours. 01/08/22 20:50 Blood Culture (Wb) - Anticubital Left Blood Culture - Preliminary No growth in 48 hours. 01/08/22 21:20 Nasal Secretion SARS-CoV-2 & FLU Antigen (Rapid) - Final Physical Exam Const alert and no apparent distress Constitutional Narrative: Patient appears stated age General Appearance: cooperative, well kempt and well developed Orientation / Consciousness: awake, oriented to person and oriented to place HEENT normocephalic, head/scalp atraumatic and moist oral mucous membranes Eyes PERRL, EOMs intact bilaterally and conjunctivae normal Neck supple, no JVD, thyroid normal and no carotid bruits General: trachea midline Resp normal respiratory effort, no retractions, no use of accessory muscles and clear to auscultation bilaterally Auscultation: Negative for rales, rhonchi or wheezes Cardio S1 normal heart sound, S2 normal heart sound, no murmurs, no rub and no gallops Cardio Narrative: Heart rate and rhythm is irregular GI normal to inspection, nondistended, normoactive bowel sounds, soft to palpation, non-tender and non-distended Extremity no clubbing, cyanosis or edema Skin no rashes or lesions noted General Skin Exam: no breakdown Neuro CN's II-XII intact bilaterally, no focal motor deficits and no sensory deficits noted Sensorium / Orientation: awake and alert Speech: speech normal Psych affect normal Psych Narrative: Patient is a poor historian Assessment & Plan Assessment/Plan (1) Bradycardia: PLAN: Plan 1. Bradycardia-as result of prescription rate limiting medications, patient's medications were adjusted and he is being monitored on telemetry. #2 atrial flutter-controlled at this time with rate limiting medication, patient is chronically on apixaban #3 essential hypertension-patient is on clonidine, lisinopril, Cardizem, and metoprolol currently #4 mild cognitive impairment-etiology of the cognitive impairment is unknown at this time, it is possible he has early dementia. I obtained some information about the patient's medical history from the nurse practitioner at the shelter facility where the patient resides, she states that the patient had a history of excessive alcohol drinking in the past. Charges/Coding Visit Charges Inpatient E&M: 34755 Subs Hosp L2
[2022-01-12] MEDS: Acetaminophen 325 MG Tablet 650 MG PO (21:21)
[2022-01-13 03:00] VITALS: BP 141/69; PULSE 70; PULSE 71; RESP 18; TEMP 36.2; O2SAT 97
[2022-01-13 07:00] VITALS: PULSE 72
--- NOTE | 2022-01-13 07:32 | CASEMGMT ---
GREG received a message from Maribeth at [place] via [employer]. Patient was approved to return to [place]. GREG will notify physician. Malinda HEADLEY
[2022-01-13 09:00] VITALS: BP 140/77; PULSE 145; RESP 16; TEMP 36.6; O2SAT 97
[2022-01-13] MEDS: dexAMETHasone 4 MG Tablet 6 MG PO (09:22)
[2022-01-13] MEDS: Thiamine Hydrochloride 100 MG Tablet PO (09:23)
[2022-01-13] MEDS: dilTIAZem CD 120 MG Capsule PO (09:23)
[2022-01-13] MEDS: Folic Acid 1 MG Tablet PO (09:23)
[2022-01-13] MEDS: cloNIDine HCl 0.1 MG Tablet PO (09:23)
[2022-01-13] MEDS: busPIRone 5 MG Tablet PO (09:23)
[2022-01-13 09:24] VITALS: BP 140/77; PULSE 145
[2022-01-13] MEDS: APIXABAN 5 MG TABLET PO (09:24)
[2022-01-13] MEDS: Metoprolol Tartrate 25 MG Tablet 12.5 MG PO (09:24)
[2022-01-13] MEDS: Sertraline 50 MG Tablet PO (09:25)
[2022-01-13] MEDS: Lisinopril 40 MG Tablet PO (09:25)
[2022-01-13] MEDS: Pantoprazole Sodium 40 MG Tablet PO (09:25)
--- NOTE | 2022-01-13 11:34 | TREXTCAR_ITS ---
Diet Diet Order/Speech Therapy: 01/09/22 15:42 Diet: Regular - No Added Salt Type of Dietary Supplement:: Magic Cup Dessert Is pt able to select menu?: No Diet Comments: magic cup BID w/ lunch and dinner Routine Orders/Code Status Code Status: Full Code Therapies Weight Bearing: Full weight bearing Physical Therapy: Eval and Treat Occupational Therapy: Eval and Treat Problem/Diagnosis (1) Bradycardia: Status: Acute Code(s): R00.1 - Bradycardia, unspecified (2) Acute kidney injury: Status: Acute Code(s): N17.9 - Acute kidney failure, unspecified Plan: resolved (3) Atrial flutter: Status: Chronic Code(s): I48.92 - Unspecified atrial flutter (4) COVID-19: Status: Acute Code(s): U07.1 - COVID-19 Comment: S/P COVID day number 15 (5) Lactic acidosis: Status: Acute Code(s): E87.20 - Acidosis, unspecified Comment: etiology unknown (6) Elevated troponin I level: Status: Acute Code(s): R77.8 - Other specified abnormalities of plasma proteins Comment: no NSTEMI (7) Normocytic anemia: Status: Acute Code(s): D64.9 - Anemia, unspecified Comment: mild (8) Toxic metabolic encephalopathy: Status: Acute Code(s): G92.8 - Other toxic encephalopathy Comment: resolved Allergies/Procedures Done in Hospital Allergies amlodipine Allergy (Verified 01/08/22 20:38) NEEDS FOLLOW-UP amoxicillin [From Amoxil] Allergy (Verified 01/08/22 20:38) NEEDS FOLLOW-UP erythromycin base Allergy (Verified 01/08/22 20:38) NEEDS FOLLOW-UP famotidine [From Pepcid] Allergy (Verified 01/08/22 20:38) NEEDS FOLLOW-UP fish oil Allergy (Verified 01/08/22 20:38) NEEDS FOLLOW-UP hydrochlorothiazide Allergy (Verified 01/08/22 20:38) NEEDS FOLLOW-UP hydroxyzine Allergy (Verified 01/08/22 20:38) NEEDS FOLLOW-UP lorazepam Allergy (Verified 01/08/22 20:38) NEEDS FOLLOW-UP Type of Care/Length of Stay Estimated LOS: Convalescent Care Less Than 30 days Type of Care Needed: Skilled Rehab Potential: Good Prognosis: Good Additional Orders/Day of Discharge Day of Discharge: 01/13/22 Dietary and Speech Recommendations Dietitian Recommendations/Changes: Continue regular/no added salt diet and ensure compact TID w/ medpass for additional calories/protein if consumed. Will d/c ensure compact with meals and offer magic cup BID instead for variety. Discuss weight hx with patient as able. Discharge Plan Admission Admit Date/Time: 01/08/22 23:41 Primary Reason for Your Visit: WESTON, debility, bradycardia Attending Provider: Rayray Fairbanks Primary Care Provider: Diego Ray Consulting Providers: Pavel Soares ; Jerrica Alvarado ; Ada Mena Discharge Orders/Prescriptions Prescriptions: New acetaminophen [Tylenol] 325 mg Tablet 650 mg PO Q6H PRN PRN (Reason: Pain 1-10 Or Fever>100.7) Qty: 0 0RF diltiazem HCl 120 mg Capsule,Extended Release 24hr 120 mg PO Q12 Qty: 0 0RF Ensure Compact Liquid 118 ml PO TIDCM Qty: 0 0RF Continued buspirone 5 mg Tablet 5 mg PO DAILY clonidine HCl 0.1 mg Tablet 0.1 mg PO BID thiamine HCl (vitamin B1) 100 mg Tablet 100 mg PO DAILY pantoprazole 40 mg Tablet,Delayed Release (Dr/Ec) 40 mg PO DAILY folic acid 1 mg Tablet 1 mg PO DAILY lisinopril 40 mg Tablet 40 mg PO DAILY sertraline [Zoloft] 50 mg Tablet 50 mg PO DAILY apixaban 5 mg Tablet 5 mg PO BID metoprolol succinate 25 mg Capsule,Sprinkle,Er 24hr 25 mg PO BID Discontinued diltiazem HCl 360 mg Capsule,Extended Release 24hr 360 mg PO DAILY Referrals / Follow Up: Diego Ray DO [Primary Care Provider] - Disposition Disposition (needs filled in before D/C Order can be placed): Jail Facility
[2022-01-13 12:00] VITALS: BP 148/74; PULSE 83; RESP 16; TEMP 36.5; O2SAT 97
--- NOTE | 2022-01-13 12:21 | PCM.DC.SUM ---
Providers Date of Admission: 01/08/22 Date of Discharge: 01/13/22 Primary Care Physician: Dr. Diego Ray, Consultations 01/08/22 23:53 Consult: Cardiology Routine Consulting Provider: Pavel Soares Reason for Consult: Bradycardia EMERGENT Consult: No MD Notified: Yes Date Notified: 01/08/22 Time Notified: 23:47 Method of Notification: ED Physician Initiated Reason For Visit: BRADYCARDIA, WESTON Diagnosis Discharge Diagnosis (1) Bradycardia: Status: Acute Code(s): R00.1 - Bradycardia, unspecified (2) Acute kidney injury: Status: Acute Code(s): N17.9 - Acute kidney failure, unspecified Plan: resolved (3) Atrial flutter: Status: Chronic Code(s): I48.92 - Unspecified atrial flutter (4) COVID-19: Status: Acute Code(s): U07.1 - COVID-19 (5) Lactic acidosis: Status: Acute Code(s): E87.20 - Acidosis, unspecified (6) Elevated troponin I level: Status: Acute Code(s): R77.8 - Other specified abnormalities of plasma proteins (7) Normocytic anemia: Status: Acute Code(s): D64.9 - Anemia, unspecified (8) Toxic metabolic encephalopathy: Status: Acute Code(s): G92.8 - Other toxic encephalopathy Plan 1. Bradycardia-secondary to prescription medication #2 atrial flutter-chronic #3 essential hypertension #4 mild cognitive impairment-etiology unclear, possible early dementia #5 subacute COVID-19 infection without hypoxia #6 acute kidney injury Medications at Discharge Home Medications apixaban 5 mg tablet 5 mg PO BID 01/08/22 buspirone 5 mg tablet 5 mg PO DAILY 01/08/22 clonidine HCl 0.1 mg tablet 0.1 mg PO BID 01/08/22 folic acid 1 mg tablet 1 mg PO DAILY 01/08/22 lisinopril 40 mg tablet 40 mg PO DAILY 01/08/22 metoprolol succinate 25 mg capsule sprinkle, ext. release 24 hr 25 mg PO BID 01/08/22 pantoprazole 40 mg tablet,delayed release 40 mg PO DAILY 01/08/22 sertraline 50 mg tablet (Zoloft) 50 mg PO DAILY 01/08/22 thiamine HCl (vitamin B1) 100 mg tablet 100 mg PO DAILY 01/08/22 acetaminophen 325 mg tablet (Tylenol) 650 mg PO Q6H PRN PRN Pain 1-10 Or Fever>100.7 #0 tabs 01/13/22 diltiazem HCl 120 mg capsule,extended release 24 hr 120 mg PO Q12 #0 caps 01/13/22 food supplemt, lactose-reduced (Ensure Compact oral liquid) 118 ml PO TIDCM #0 mL 01/13/22 Hospital Course Operations None Procedures None Summary of Care Provided Minutes Spent on Discharge: 31 Hospital Course: 71-year-old white male was seen in the emergency room at [facility] after being transported in from an extended care facility where he was undergoing rehab services due to bradycardia and generalized abdominal pain. Patient was recently diagnosed with COVID-19 1 day prior to being [place] [facility]. Work-up in the emergency room revealed a normal white blood cell count, hemoglobin was slightly low at 12.1, lactic acid was slightly elevated at 2.3, BUN was 23 and creatinine was 1.97. Troponin was slightly elevated at 89. EKG showed atrial flutter with a pulse rate of 41. Patient was admitted to PCU, he was seen in consultation by cardiology and his rate limiting medications were adjusted. Patient was placed on Decadron 6 mg daily, this examiner did not feel the patient's cardiac enzyme elevations indicated a type II's non-STEMI. Patient was seen by PT and OT, on 01/13/2022, patient was seen and examined: On examination he appeared in good health and spirits. Vital signs as documented. Skin warm and dry and without overt rashes. Neck without JVD, neck was supple, trachea midline, thyroid was normal. Lungs clear bilaterally, normal air movement was noted. Heart exam notable for irregular rhythm, normal sounds and absence of murmurs, rubs or gallops. Abdomen unremarkable and without evidence of organomegaly, masses, or abdominal aortic enlargement. Bowel sounds are present, abdomen is not distended. Extremities nonedematous, no cyanosis was noted, no clubbing was noted. Neuro: Cranial nerves II through XII are grossly intact, no focal motor deficits were noted, sensation to light touch and pinprick intact, motor exam 5/5 throughout. Psych: Patient is alert and exhibits mild confusion Patient appeared stable for discharge back to his extended care facility on 01/13/2022. Weight / BMI Weight Weight: 77.7 kg Body Mass Index (BMI) 23.8 ABG / Lab / Microbiology Data Result Diagrams: 01/12/22 07:08 01/12/22 07:08 Microbiology: Microbiology 01/08/22 20:50 Blood Culture (Wb) - Right Wrist Blood Culture - Preliminary No growth in 48 hours. 01/08/22 20:50 Blood Culture (Wb) - Anticubital Left Blood Culture - Preliminary No growth in 48 hours. 01/08/22 21:20 Nasal Secretion SARS-CoV-2 & FLU Antigen (Rapid) - Final Meaningful Use Info Meaningful Use Diagnoses (Choose all that apply): None applicable Discharge Plan Admission Admit Date/Time: 01/08/22 23:41 Primary Reason for Your Visit: WESTON, debility, bradycardia Attending Provider: Rayray Fairbanks Primary Care Provider: Diego Ray Consulting Providers: Pavel Soares ; Jerrica Alvarado ; Ada Mena Discharge Orders/Prescriptions Prescriptions: New acetaminophen [Tylenol] 325 mg Tablet 650 mg PO Q6H PRN PRN (Reason: Pain 1-10 Or Fever>100.7) Qty: 0 0RF diltiazem HCl 120 mg Capsule,Extended Release 24hr 120 mg PO Q12 Qty: 0 0RF Ensure Compact Liquid 118 ml PO TIDCM Qty: 0 0RF Continued buspirone 5 mg Tablet 5 mg PO DAILY clonidine HCl 0.1 mg Tablet 0.1 mg PO BID thiamine HCl (vitamin B1) 100 mg Tablet 100 mg PO DAILY pantoprazole 40 mg Tablet,Delayed Release (Dr/Ec) 40 mg PO DAILY folic acid 1 mg Tablet 1 mg PO DAILY lisinopril 40 mg Tablet 40 mg PO DAILY sertraline [Zoloft] 50 mg Tablet 50 mg PO DAILY apixaban 5 mg Tablet 5 mg PO BID metoprolol succinate 25 mg Capsule,Sprinkle,Er 24hr 25 mg PO BID Discontinued diltiazem HCl 360 mg Capsule,Extended Release 24hr 360 mg PO DAILY Referrals / Follow Up: Diego Ray DO [Primary Care Provider] - Disposition Disposition (needs filled in before D/C Order can be placed): [facility] Charges/Coding Visit Charges Inpatient E&M: 88346 Disch Hosp
--- NOTE | 2022-01-13 13:27 | CASEMGMT ---
Patient is ready for discharge back to [place]. GREG called Chris and requested transport via wheelchair through [facility]. GREG made it known patient needs a wheelchair provided and [facility] is [facility]'s preferred provider. The trip number is [id number]. 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 Venessa d/c director financial planning sending d/c orders to [place]. Plan: d/c back to [place] at [facility] under skilled level of care. Malinda Argueta PIPEFITTER HELPER KAYODE
--- NOTE | 2022-01-13 13:33 | PHA.DC.MR ---
Pharmacy Service has performed discharge medication reconciliation for this patient. The patient's discharge medication list was reviewed for discrepancies and discrepancies were resolved. Home Medications apixaban 5 mg tablet 5 mg PO BID 01/08/22 buspirone 5 mg tablet 5 mg PO DAILY 01/08/22 clonidine HCl 0.1 mg tablet 0.1 mg PO BID 01/08/22 folic acid 1 mg tablet 1 mg PO DAILY 01/08/22 lisinopril 40 mg tablet 40 mg PO DAILY 01/08/22 metoprolol succinate 25 mg capsule sprinkle, ext. release 24 hr 25 mg PO BID 01/08/22 pantoprazole 40 mg tablet,delayed release 40 mg PO DAILY 01/08/22 sertraline 50 mg tablet (Zoloft) 50 mg PO DAILY 01/08/22 thiamine HCl (vitamin B1) 100 mg tablet 100 mg PO DAILY 01/08/22 acetaminophen 325 mg tablet (Tylenol) 650 mg PO Q6H PRN PRN Pain 1-10 Or Fever>100.7 #0 tabs 01/13/22 diltiazem HCl 120 mg capsule,extended release 24 hr 120 mg PO Q12 #0 caps 01/13/22 food supplemt, lactose-reduced (Ensure Compact oral liquid) 118 ml PO TIDCM #0 mL 01/13/22
--- NOTE | 2022-01-13 13:46 | CASEMGMT ---
Discharge Pumping Station Supervisor D/c orders sent to Maribeth at [facility] via [facility]. Ryan MCWILLIAMS Fabrics And Material Cutter
--- NOTE | 2022-01-13 14:12 | CHAPLAIN ---
Type of Pastoral Visit _x__ Initial Visit ___ Follow-up Visit ___ On-call Visit ___ General Patient Visit ___ Spiritual Assessment ___ Family Conference ___ Bereavement ___ Rapid Response ___ Code Blue ___ Other (describe below) Pastoral Care Referral From _x__ Patient ___ Family ___ Nurse ___ Physician ___ Umbrella Cutter ___ Report Checker ___ Other (describe below) Sacrament/Intervention _x__ Active listening ___ Anointing ___ Confucianist ___ Bereavement ___ Communion ___ Lakshmi exploration ___ ___ Life review ___ Prayer ___ Reconciliation ___ Sacrament of Sick _x__ Supportive presence ___ Wedding ___ Other (describe below) Pastoral Comments patient has been seen before by this pulmonary physician; pt is talkative about his situation and care; pt talks about his residence at [facility]; pt has some mental limitations and yet talks with great confidence in his own decisions; offer of presence and support
[2022-01-13 15:00] VITALS: PULSE 72
--- NOTE | 2022-01-13 15:23 | CASEMGMT ---
GREG called [facility] and checked on status of transport request. GREG was informed that [facility] will be at [facility] in 30-35 minutes. GREG notified RN and medical assistant secretary. Venessa notified Maribeth at [place]. Plan: d/c back to [place] under skilled level of care. [facility] transported patient via wheelchair. This was arranged via [employer]. Malinda Argueta SERVICES PROGRAM MANAGER KAYODE
--- NOTE | 2022-01-13 16:17 | NURSING ---
Report called to RN at [facility].
--- NOTE | 2022-01-13 16:23 | NURSING ---
Charting reviewed with Aracelis Vernon RN
== END 2022-01-13 16:16 | disposition skilled nursing facility (03) | DRG 201 ==
LOC: ED 23:39 → PCU 01-09 07:08
PROVIDERS: Internal Medicine; Admitting Provider Internal Medicine; Emergency Provider Emergency Medicine; PCP Preventive Medicine Occupational Medicine; Visit Provider Internal Medicine
DX: R00.1 Bradycardia, unspecified (principal); N17.9 Acute kidney failure, unspecified; I13.0 Hypertensive heart and chronic kidney disease with heart failure and stage 1 through stage 4 chronic kidney disease, or unspecified chronic kidney disease; I50.9 Heart failure, unspecified; I49.5 Sick sinus syndrome; I48.92 Unspecified atrial flutter; I48.91 Unspecified atrial fibrillation; G31.84 Mild cognitive impairment of uncertain or unknown etiology; U07.1 COVID-19; G92.8 Other toxic encephalopathy; N18.2 Chronic kidney disease, stage 2 (mild); E78.5 Hyperlipidemia, unspecified; K21.9 Gastro-esophageal reflux disease without esophagitis; D64.9 Anemia, unspecified; F41.9 Anxiety disorder, unspecified; E88.81 Metabolic syndrome and other insulin resistance; R19.7 Diarrhea, unspecified; R77.8 Other specified abnormalities of plasma proteins; T44.7X5A Adverse effect of beta-adrenoreceptor antagonists, initial encounter; T46.1X5A Adverse effect of calcium-channel blockers, initial encounter; E87.20 Acidosis, unspecified; F32.A Depression, unspecified; Z79.01 Long term (current) use of anticoagulants; Z79.899 Other long term (current) drug therapy
CPT/HCPCS: 36415; 71045; 80048; 80053; 81001; 83605; 83735; 84100; 84439; 84443; 84484; 85025; 87040; 87428; 87635; 93005; 96361; 96374; 97110; 97162; 97166; 97530; 97535; 99221; 99251; 99285; J7030; J7120; A4216; G0378; G0463; J2405; U0003; U0005

== ENCOUNTER 2022-01-30 00:01 | Emergency (ER) | payer MEDICAID, SELFPAY ==
[2022-01-30 00:04] VITALS: BP 149/98; PULSE 140; RESP 18; TEMP 36.3; O2SAT 97; BMI 25.6
[2022-01-30 00:07] VITALS: PULSE 140
--- NOTE | 2022-01-30 00:33 | EKG12_ITS ---
Test Reason : ABD PAIN Blood Pressure : / mmHG Vent. Rate : 139 BPM Atrial Rate : 139 BPM P-R Int : 144 ms QRS Dur : 164 ms QT Int : 362 ms P-R-T Axes : 000 016 257 degrees QTc Int : 550 ms Sinus tachycardia Non-specific intra-ventricular conduction block Minimal voltage criteria for LVH, may be normal variant ( [employer] [place] product ) Abnormal ECG Confirmed by BENIGNO ASCENCIO, JAGDISH ([id number]), industrial editor ALONDRA WATKINS ([id number]) on 02/02/2022 11:55:43 AM Referred By: SHIRA Confirmed By:JAGDISH PELAEZ MD
--- NOTE | 2022-01-30 00:33 | CT_ITS ---
EXAM: CT ABDOMEN AND PELVIS WITH INTRAVENOUS CONTRAST CLINICAL INDICATION: abd pain TECHNIQUE: Helically acquired images were obtained of the abdomen and pelvis with intravenous contrast. This CT exam was performed using one or more of the following dose reduction techniques: automated exposure control, adjustment of the mA and/or kV according to patient size, and/or use of iterative reconstruction technique. This report was created using Meddle report generation technology. CONTRAST: IV 100mL Isovue-370 RADIATION DOSE: CTDIvol = 12.66 mGy, DLP = 1218.38 mGy-cm. COMPARISON: None. FINDINGS: LOWER THORAX: Slight calcification in the aortic valve region. The heart is not fully included left atrium appears mildly prominent, overall normal heart size. Calcified granuloma in the right lung base. Mild juxtapleural thickening along the right lateral lung. No significant pericardial effusion. ABDOMEN: LIVER: Unremarkable. Homogeneous. No focal mass. GALLBLADDER AND BILE DUCTS: Unremarkable. No calcified gallstones. No gallbladder distention or wall edema. No intra- or extrahepatic biliary ductal dilation. PANCREAS: Unremarkable. No focal cystic or solid mass. SPLEEN: Unremarkable. Normal size without focal cystic or solid mass. ADRENALS: Unremarkable. No nodules. KIDNEYS AND URETERS: Atrophic lower pole right kidney, possibly scarring. No hydronephrosis. STOMACH AND BOWEL: Moderate fluid and gas in the stomach. Mildly prominent fluid-filled small bowel loops. Moderate fluid and gas in the proximal half of the colon, mild fluid in the descending colon. Collapsed segments of most of the sigmoid colon and rectum. Moderate diverticulosis of the sigmoid mild diverticulosis of the left colon. Possible enterocolitis. Maximum small bowel diameter about 2.5 cm. Mucosal enhancement and multiple jejunal loops and duodenum. Patent mesenteric vessels. No stomach or bowel distention. PELVIS: APPENDIX: No evidence of acute appendicitis. BLADDER: Unremarkable. REPRODUCTIVE: Unremarkable as visualized. No mass. ABDOMEN and PELVIS: INTRAPERITONEAL SPACE: Unremarkable. No ascites or other fluid collection. No free air. BONES/JOINTS: Severe degenerative change of the right hip joint, marked joint space narrowing with subchondral cysts, sclerosis and hypertrophic changes and protrusio acetabuli. Milder degenerative change at the left hip joint. Levoscoliosis centered at L3. Multilevel spondylosis. Anterior fusion of the SI joints. Mild narrowing of the spinal canal. No suspicious lytic or blastic abnormality. SOFT TISSUES: Slight fat-containing umbilical hernia. VASCULATURE: Mild aortoiliac atherosclerotic calcification, no aneurysm or dissection. LYMPH NODES: Unremarkable. No enlarged lymph nodes. CT/Abdomen/Pelvis W IV Cont ONLY IMPRESSION: 1. Suspicion of enterocolitis. Prominent fluid in much of small bowel and colon and mucosal thickening and enhancement, especially of the duodenal and jejunal loops. 2. Moderate diverticulosis descending and sigmoid colon, no evidence of acute diverticulitis. Collapsed segments of distal colon. 3. Degenerative spine and hip changes. Severe degenerative change of the right hip. 4. Asymmetric scarring and volume loss of the lower pole of the right kidney. 5. Mild atherosclerotic changes. Electronically Signed: Kasey Nguyen MD at 2:14 EST ,
[2022-01-30] MEDS: Ondansetron 4 MG/2 ML Vial IV (00:41)
[2022-01-30] MEDS: Morphine 2 MG/ML Syringe IV (00:45)
[2022-01-30 00:46] LABS: Absolute Lymphocyte Count 0.66 X10^3/uL (0.83-4.51); Absolute Neutrophil Count 10.9 X10^3/uL (2.0-7.7); Basophil# 0.06 X10^3/uL; Basophil% 0.5 % (0-1); Eosinophil# 0.32 X10^3/uL; Eosinophils% 2.5 % (0-5); Hematocrit 39.6 % (40-54); Hemoglobin 12.8 g/dL (13.0-16.5); Lymphocyte # 0.66 X10^3/ul (0.83-4.51); Lymphocyte % 5.2 % (19-41); Mean Corp Hgb Conc 32.3 g/dL (32-36); Mean Corpuscular Hgb 29.7 pg (27.0-32.0); Mean Corpuscular Volume 91.9 fL (80-94); Mean Platelet Vol. 9.8 fl (6.2-12.0); Monocyte# 0.55 X10^3/uL; Monocyte% 4.4 % (0-10); NRBC Flagged by Analyzer 0 % (0-5); Neutrophil # 10.92 X10^3/uL (2.7-7.7); Neutrophil % 86.5 % (47-70); Platelet Count 203 K/mm3 (150-450); RBC Distribution Width CV 14.1 % (11.6-14.6); RBC Distribution Width SD 48.4 fl (35.1-43.9); Red Blood Count 4.31 M/mm3 (4.6-6.2); White Blood Count 12.6 K/mm3 (4.4-11.0)
[2022-01-30 01:03] LABS: AST(SGOT) 26 U/L (15-37); Alanine Aminotransfer ALT/SGPT 42 U/L (16-61); Albumin, Serum 3.5 g/dL (3.2-5.0); Alkaline Phosphatase 81 U/L (45-117); Anion Gap 12 (5-15); BUN 23 mg/dL (7-18); BUN/Creat Ratio 19.7 RATIO (10-20); Bilirubin, Direct 0.19 mg/dL (0.00-0.30); Calcium,Total 9.1 mg/dL (8.5-10.1); Chloride 105 mmol/L (98-107); Creatinine, Serum 1.17 mg/dL (0.70-1.30); EST Glomerular Filtration Rate 65 mL/min (>60); Est Glom Filt Rate - Afr Amer 79 mL/min (>60); Estimated Creatinine Clearance 59.79 ml/min; Globulin 4.2 g/dL (2.2-4.2); Glucose 201 mg/dL (74-106); Lipase 164 U/L (73-393); Potassium 3.9 mmol/L (3.5-5.1); Protein, Total 7.7 g/dL (6.4-8.2); Sodium Level 138 mmol/L (136-145)
--- NOTE | 2022-01-30 01:51 | EDS_ITS ---
HPI History of Present Illness Chief Complaint: Abd Pain Narrative Narrative: Patient is a 71-year-old male from the senior care with past medical history of paroxysmal atrial fibrillation/flutter. He states every night when he lies down he gets reflux into his throat. He states this evening the same thing happened but then he developed bouts of vomiting. He states with this he has abdominal pain which is different for him and secondary to this senior care called EMS to bring him in for evaluation. [facility] Medical History Anemia Anxiety Atrial flutter CHF (congestive heart failure) COVID-19 Fracture of first lumbar vertebra HTN (hypertension) Hyperlipidemia Normocytic anemia YULIANA (obstructive sleep apnea) Other cervical disc degeneration, unspecified cervical region Paroxysmal atrial fibrillation Syncope and collapse Syncope and collapse TIA (transient ischemic attack) Type 2 diabetes mellitus Home Medications apixaban 5 mg tablet 5 mg PO BID 01/08/22 [History Last Taken Unknown] buspirone 5 mg tablet 5 mg PO DAILY 01/08/22 [History Last Taken Unknown] clonidine HCl 0.1 mg tablet 0.1 mg PO BID 01/08/22 [History Last Taken Unknown] folic acid 1 mg tablet 1 mg PO DAILY 01/08/22 [History Last Taken Unknown] lisinopril 40 mg tablet 40 mg PO DAILY 01/08/22 [History Last Taken Unknown] metoprolol succinate 25 mg capsule sprinkle, ext. release 24 hr 25 mg PO BID 01/08/22 [History Last Taken Unknown] pantoprazole 40 mg tablet,delayed release 40 mg PO DAILY 01/08/22 [History Last Taken Unknown] sertraline 50 mg tablet (Zoloft) 50 mg PO DAILY 01/08/22 [History Last Taken Unknown] thiamine HCl (vitamin B1) 100 mg tablet 100 mg PO DAILY 01/08/22 [History Last Taken Unknown] acetaminophen 325 mg tablet (Tylenol) 650 mg PO Q6H PRN PRN Pain 1-10 Or Fever>100.7 #0 tabs 01/13/22 [Rx Last Taken Unknown] diltiazem HCl 120 mg capsule,extended release 24 hr 120 mg PO Q12 #0 caps 01/13/22 [Rx Last Taken Unknown] food supplemt, lactose-reduced (Ensure Compact oral liquid) 118 ml PO TIDCM #0 mL 01/13/22 [Rx Last Taken Unknown] ondansetron 4 mg disintegrating tablet 4 mg PO TID PRN nausea and vomiting #21 tabs 01/30/22 [Rx Last Taken Unknown] Allergy/AdvReac Type Severity Reaction Status Date / Time amlodipine Allergy NEEDS Verified 01/08/22 20:38 FOLLOW-UP amoxicillin [From Amoxil] Allergy NEEDS Verified 01/08/22 20:38 FOLLOW-UP erythromycin base Allergy NEEDS Verified 01/08/22 20:38 FOLLOW-UP famotidine [From Pepcid] Allergy NEEDS Verified 01/08/22 20:38 FOLLOW-UP fish oil Allergy NEEDS Verified 01/08/22 20:38 FOLLOW-UP hydrochlorothiazide Allergy NEEDS Verified 01/08/22 20:38 FOLLOW-UP hydroxyzine Allergy NEEDS Verified 01/08/22 20:38 FOLLOW-UP lorazepam Allergy NEEDS Verified 01/08/22 20:38 FOLLOW-UP Surgical History H/O knee surgery Social History (Updated 01/09/22 @ 00:[address] Jerrica Alvarado, DO) housing: senior care Smoking Status: Never smoker alcohol intake: former substance use type: does not use ROS ROS ED Constitutional Constitutional ED: Denies chills or fever(s) ENT ENT ED: Reports sore throat Cardiovascular Cardiovascular: Denies chest pain Respiratory/Chest Respiratory/Chest: Denies cough or dyspnea Gastrointestinal Gastrointestinal: Reports abdominal pain, nausea and vomiting; Denies diarrhea Genitourinary Genitourinary ED: Denies dysuria Musculoskeletal Musculoskeletal: Denies back pain or myalgias Integumentary Denies rash Neurologic Neurologic: Denies headache(s) Hematologic/Lymphatic Hematologic/Lymphatic: Reports easy bleeding and easy bruising EXAM Physical Exam Const Vital Signs: 01/30/22 00:04 01/30/22 00:07 01/30/22 01:54 Temperature 97.4 F L Temperature Source Temporal Pulse Rate 140 H 140 H 136 H Respiratory Rate 18 16 Blood Pressure 149/98 H 148/109 H Blood Pressure Mean 115 122 Pulse Ox 97 98 Oxygen Delivery Method Room Air Room Air 01/30/22 02:08 Temperature Temperature Source Pulse Rate 134 H Respiratory Rate 25 H Blood Pressure 130/90 H Blood Pressure Mean 103 Pulse Ox 96 Oxygen Delivery Method Room Air Positive well nourished and well developed General Appearance ED: well developed HEENT Reports moist mucous membranes HEENT Narrative: No oral lesions no airway edema or compromise. No changes in the posterior pharynx to suggest infection such as trismus change in voice difficulty with secretions erythema or exudates. Eyes PERRL and EOMs intact bilaterally General Eye ED: Negative for scleral icterus Neck supple and no JVD Resp normal respiratory effort and clear to auscultation bilaterally Cardio regular rhythm Rate: tachycardic and other Other Details: Radial pulses are plus 2 out of 4 bilaterally are equal and symmetric GI non-tender and non-distended GI Narrative: Abdomen is soft and nondistended with normoactive bowel sounds. No voluntary guarding or rigidity. No pulsatile mass or fluid wave. Patient complains of abdominal pain but there is none that can be reproduced with palpation. Auscultation: normoactive bowel sounds Palpation: soft Extremity normal to inspection Neuro oriented x3 and CN's II-XII intact bilaterally Sensorium / Orientation: alert Psych Psych Narrative: Patient has a confrontational/aggressive affect Skin no rashes or lesions noted General Skin Exam: Negative for jaundice MDM MDM MDM Narrative Medical decision making narrative: Patient presented to the ER tachycardic but otherwise with stable vitals and the EKG displayed this with sinus tachycardia and not a atrial fibs/flutter with RVR. Because of his reported abdominal pain and elected perform basic laboratory studies as well as a CT of his abdomen and pelvis with IV contrast. Patient's labs revealed no clinically significant findings and the CAT scan showed changes consistent with enteritis but no acute obstruction or perforation. The patient was given IV metoprolol as well as Cardizem and his heart rate reduced to approximately 80. He had no further bouts of vomiting while in the ER. On reevaluation his stomach remains soft and nonsurgical. Therefore patient does not need further evaluation in the ER and is otherwise safe for discharge as work-up shows changes consistent with viral stomach infection but no surgical pathology or septicemia changes Lab Data Attestation: I reviewed the patient's lab results. Labs: Laboratory Results - last 24 hr 01/30/22 01/30/22 00:15 00:15 WBC 12.6 H RBC 4.31 L Hgb 12.8 L Hct 39.6 L MCV 91.9 MCH 29.7 MCHC 32.3 RDW Std Deviation 48.4 H RDW Coeff of Roberto 14.1 Plt Count 203 MPV 9.8 Immature Gran % (Auto) 0.900 Neut % (Auto) 86.5 H Lymph % (Auto) 5.2 L [place] % (Auto) 4.4 Eos % (Auto) 2.5 Baso % (Auto) 0.5 Absolute Neuts (auto) 10.9 H Absolute Lymphs (auto) 0.66 L Nucleated RBC % 0 Sodium 138 Potassium 3.9 Chloride 105 Carbon Dioxide 21.0 Anion Gap 12 BUN 23 H Creatinine 1.17 Estim Creat Clear Calc 59.79 Est GFR (MDRD) Af Amer 79 Est GFR (MDRD) Non-Af 65 BUN/Creatinine Ratio 19.7 Glucose 201 H Calcium 9.1 Total Bilirubin 0.50 Direct Bilirubin 0.19 AST 26 ALT 42 Alkaline Phosphatase 81 Total Protein 7.7 Albumin 3.5 Globulin 4.2 Lipase 164 Radiography Diagnostic Testing: Clinical Impression(s) from Imaging Studies Abdomen/Pelvis CT 01/30/22 00:33 IMPRESSION: 1. Suspicion of enterocolitis. Prominent fluid in much of small bowel and colon and mucosal thickening and enhancement, especially of the duodenal and jejunal loops. 2. Moderate diverticulosis descending and sigmoid colon, no evidence of acute diverticulitis. Collapsed segments of distal colon. 3. Degenerative spine and hip changes. Severe degenerative change of the right hip. 4. Asymmetric scarring and volume loss of the lower pole of the right kidney. 5. Mild atherosclerotic changes. 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 Instructions: ED Gastritis (Adult), ED Gastroenteritis, Viral (Adult) Prescriptions: New ondansetron 4 mg tablet,disintegrating 4 mg PO TID PRN (Reason: nausea and vomiting) Qty: 21 0RF No Action buspirone 5 mg Tablet 5 mg PO DAILY clonidine HCl 0.1 mg Tablet 0.1 mg PO BID thiamine HCl (vitamin B1) 100 mg Tablet 100 mg PO DAILY pantoprazole 40 mg Tablet,Delayed Release (Dr/Ec) 40 mg PO DAILY folic acid 1 mg Tablet 1 mg PO DAILY lisinopril 40 mg Tablet 40 mg PO DAILY sertraline [Zoloft] 50 mg Tablet 50 mg PO DAILY apixaban 5 mg Tablet 5 mg PO BID metoprolol succinate 25 mg Capsule,Sprinkle,Er 24hr 25 mg PO BID acetaminophen [Tylenol] 325 mg Tablet 650 mg PO Q6H PRN PRN (Reason: Pain 1-10 Or Fever>100.7) Qty: 0 0RF diltiazem HCl 120 mg Capsule,Extended Release 24hr 120 mg PO Q12 Qty: 0 0RF Ensure Compact Liquid 118 ml PO TIDCM Qty: 0 0RF Primary Care Provider: Ryan Barragan Referrals: Ryan Barragan MD [Primary Care Provider] - Activity Restrictions/Additional Instructions: Please continue all of your medications as directed by your family doctor and add Zofran for improved nausea/vomit control. Please return to the ER should you have any further concerns Disposition Disposition: Home, Self Care
[2022-01-30] MEDS: HYDROmorphone 0.5 MG/0.5 ML SYRINGE IV (01:53)
[2022-01-30 01:54] VITALS: BP 148/109; PULSE 136; RESP 16; O2SAT 98
[2022-01-30] MEDS: Metoprolol Tartrate 5 MG/5 ML Vial IV (01:58)
[2022-01-30 02:08] VITALS: BP 130/90; PULSE 134; RESP 25; O2SAT 96
[2022-01-30] MEDS: dilTIAZem 25 MG/5 ML Vial 20 MG IV BOLUS (02:47)
[2022-01-30] MEDS: Mag Hydrox/Al Hydrox/Simeth 30 ML UDC PO (02:52)
[2022-01-30 03:48] VITALS: BP 104/61; PULSE 99; RESP 18; O2SAT 99
== END 2022-01-30 06:43 | disposition home or self-care (01) ==
PROVIDERS: Emergency Provider Emergency Medicine; PCP Family Medicine; Visit Provider Emergency Medicine
DX: R10.9 Unspecified abdominal pain (principal); I11.0 Hypertensive heart disease with heart failure; I50.9 Heart failure, unspecified; R11.2 Nausea with vomiting, unspecified; K52.9 Noninfective gastroenteritis and colitis, unspecified; G47.33 Obstructive sleep apnea (adult) (pediatric); Z79.01 Long term (current) use of anticoagulants; Z86.16 Personal history of COVID-19; Z86.73 Personal history of transient ischemic attack (TIA), and cerebral infarction without residual deficits; Z79.899 Other long term (current) drug therapy
CPT/HCPCS: 80076; 96365; 99284; 93005; 74177; 85025; J2405; Q9967; 96375; 80048; 83690; A4216

== ENCOUNTER 2022-01-30 09:09 | Emergency (ER) | payer MEDICAID, SELFPAY ==
[2022-01-30 09:11] VITALS: BP 154/107; PULSE 140; RESP 15; TEMP 36.9; O2SAT 97; BMI 25.5
[2022-01-30 09:19] VITALS: PULSE 139; RESP 20; O2SAT 97
--- NOTE | 2022-01-30 10:03 | EX.ED.DYSGE1 ---
HPI History of Present Illness Chief Complaint: Palpitations Informant: patient Onset/Context/Timing Onset: Today Context: Gradual Onset Timing: Continuous Quality: Aching Location: Left chest Worsened by: Nothing Relieved by: Nothing Narrative Narrative: Patient presents with palpitations that began today. Patient states he has a history of tachycardia and atrial fibrillation. Patient states that he was sent to the emergency department because his heart was beating fast. Patient denies any shortness of breath. Patient admits to some mild pain over the left side of his chest. Patient was seen here earlier today for abdominal pain. Patient was given a dose of Cardizem at that time and his heart rate improved. Patient is on Cardizem. Patient is unsure if he got his medications today. [facility] Medical History Anemia Anxiety Atrial flutter CHF (congestive heart failure) COVID-19 Fracture of first lumbar vertebra HTN (hypertension) Hyperlipidemia Normocytic anemia YULINAA (obstructive sleep apnea) Other cervical disc degeneration, unspecified cervical region Paroxysmal atrial fibrillation Syncope and collapse Syncope and collapse TIA (transient ischemic attack) Type 2 diabetes mellitus Home Medications apixaban 5 mg tablet 5 mg PO BID 01/08/22 [History Last Taken Unknown] buspirone 5 mg tablet 5 mg PO DAILY 01/08/22 [History Last Taken Unknown] clonidine HCl 0.1 mg tablet 0.1 mg PO BID 01/08/22 [History Last Taken Unknown] folic acid 1 mg tablet 1 mg PO DAILY 01/08/22 [History Last Taken Unknown] lisinopril 40 mg tablet 40 mg PO DAILY 01/08/22 [History Last Taken Unknown] metoprolol succinate 25 mg capsule sprinkle, ext. release 24 hr 25 mg PO BID 01/08/22 [History Last Taken Unknown] pantoprazole 40 mg tablet,delayed release 40 mg PO DAILY 01/08/22 [History Last Taken Unknown] sertraline 50 mg tablet (Zoloft) 50 mg PO DAILY 01/08/22 [History Last Taken Unknown] thiamine HCl (vitamin B1) 100 mg tablet 100 mg PO DAILY 01/08/22 [History Last Taken Unknown] acetaminophen 325 mg tablet (Tylenol) 650 mg PO Q6H PRN PRN Pain 1-10 Or Fever>100.7 #0 tabs 01/13/22 [Rx Last Taken Unknown] diltiazem HCl 120 mg capsule,extended release 24 hr 120 mg PO Q12 #0 caps 01/13/22 [Rx Last Taken Unknown] food supplemt, lactose-reduced (Ensure Compact oral liquid) 118 ml PO TIDCM #0 mL 01/13/22 [Rx Last Taken Unknown] ondansetron 4 mg disintegrating tablet 4 mg PO TID PRN nausea and vomiting #21 tabs 01/30/22 [Rx Last Taken Unknown] Allergy/AdvReac Type Severity Reaction Status Date / Time amlodipine Allergy NEEDS Verified 01/08/22 20:38 FOLLOW-UP amoxicillin [From Amoxil] Allergy NEEDS Verified 01/08/22 20:38 FOLLOW-UP erythromycin base Allergy NEEDS Verified 01/08/22 20:38 FOLLOW-UP famotidine [From Pepcid] Allergy NEEDS Verified 01/08/22 20:38 FOLLOW-UP fish oil Allergy NEEDS Verified 01/08/22 20:38 FOLLOW-UP hydrochlorothiazide Allergy NEEDS Verified 01/08/22 20:38 FOLLOW-UP hydroxyzine Allergy NEEDS Verified 01/08/22 20:38 FOLLOW-UP lorazepam Allergy NEEDS Verified 01/08/22 20:38 FOLLOW-UP Surgical History H/O knee surgery Social History housing: custodial Smoking Status: Never smoker alcohol intake: former substance use type: does not use ROS ROS ED Constitutional Constitutional ED: Denies chills or fever(s) Eyes Eyes: Denies blurry vision or change in vision ENT ENT ED: Reports sore throat; Denies rhinorrhea Cardiovascular Cardiovascular: Reports chest pain and palpitations Respiratory/Chest Respiratory/Chest: Denies cough or dyspnea Gastrointestinal Gastrointestinal: Denies nausea or vomiting Genitourinary Genitourinary ED: Denies dysuria or hematuria Musculoskeletal Musculoskeletal: Reports back pain and neck pain Integumentary Denies abscess or rash Neurologic Neurologic: Reports headache(s); Denies weakness Allergic/Immunologic Allergic/Immunologic ED: Denies mouth swelling or urticaria EXAM Physical Exam Const Vital Signs: 01/30/22 09:11 01/30/22 09:18 01/30/22 09:19 Temperature 98.4 F Temperature Source Oral Pulse Rate 140 H 139 H Respiratory Rate 15 20 H Respiratory Pattern Normal Blood Pressure 154/107 H Blood Pressure Mean 122 Pulse Ox 97 97 Oxygen Delivery Method Room Air 01/30/22 11:09 01/30/22 13:10 01/30/22 13:11 Temperature 98.3 F Temperature Source Oral Pulse Rate 138 H 93 93 Respiratory Rate 17 23 H Respiratory Pattern Blood Pressure 143/98 H 146/77 H Blood Pressure Mean 113 100 Pulse Ox 97 98 Oxygen Delivery Method Room Air Positive well nourished and well developed General Appearance ED: well developed HEENT Reports moist mucous membranes Neck supple and no JVD Resp normal respiratory effort and clear to auscultation bilaterally Cardio regular rhythm Rate: tachycardic GI normal to inspection, nondistended, normoactive bowel sounds and non-tender Palpation: soft Extremity normal to inspection General Extremety ED: Negative for edema or tenderness General Extremity: Negative for edema Neuro oriented x3, CN's II-XII intact bilaterally and no sensory deficits noted Sensorium / Orientation: alert Motor Exam: strength 5/5 throughout Psych mental status grossly normal Skin no rashes or lesions noted MDM MDM MDM Narrative Medical decision making narrative: EKG was obtained. On my interpretation, it shows a sinus tachycardia with a rate of 138. There are nonspecific ST-T wave changes. GA interval, QRS interval, and QTc intervals are within normal limits. [place] is normal. This is unchanged compared to previous EKG from earlier this morning on previous visit. Patient was given a dose of IV and oral Cardizem here. CBC showed hemoglobin of 12.2 and hematocrit of 39.5. Comprehensive metabolic profile was essentially within normal limits. High-sensitivity troponin was normal. Patient's heart rate improved after the Cardizem. Patient is feeling better on reevaluation. Patient wants to go home. Patient will be discharged. Patient was instructed to follow-up with his primary care physician in 3 to 5 days. Patient understood and was agreeable with the plan. All questions were answered. Lab Data Attestation: I reviewed the patient's lab results. Labs: Laboratory Results - last 24 hr 01/30/22 01/30/22 11:05 11:05 WBC 8.2 RBC 4.07 L Hgb 12.2 L Hct 39.5 L MCV 97.1 H D MCH 30.0 MCHC 30.9 L RDW Std Deviation 51.8 H RDW Coeff of Roberto 14.5 Plt Count 170 MPV 9.4 Immature Gran % (Auto) 0.400 Neut % (Auto) 86.6 H Lymph % (Auto) 6.6 L [place] % (Auto) 4.5 Eos % (Auto) 1.5 Baso % (Auto) 0.4 Absolute Neuts (auto) 7.1 Absolute Lymphs (auto) 0.54 L Nucleated RBC % 0 Differential Comment SCANNED Sodium 138 Potassium 3.9 Chloride 108 H Carbon Dioxide 24.0 Anion Gap 6 BUN 20 H Creatinine 0.94 Estim Creat Clear Calc 74.42 Est GFR (MDRD) Af Amer 102 Est GFR (MDRD) Non-Af 85 BUN/Creatinine Ratio 21.4 H Glucose 122 H Calcium 8.1 L Total Bilirubin 0.60 AST 14 L ALT 36 Alkaline Phosphatase 74 Troponin I High Sens 13 Total Protein 6.7 Albumin 3.0 L Globulin 3.7 Albumin/Globulin Ratio 0.8 L EKG Initial EKG: Attestation: I personally reviewed and interpreted this EKG as follows: Interpretation: Sinus Tachycardia (138) and Non-Specific ST Changes Prior EKG tracings: available for review Prior: Unchanged (01/30/2022) Discharge Plan Triage Chief Complaint: Palpitations ED Provider: Isaiah Quintero Dx/Rx/DC Orders Clinical Impression: Tachycardia, Atrial flutter Instructions: ED Tachycardia: PAT Prescriptions: No Action buspirone 5 mg Tablet 5 mg PO DAILY clonidine HCl 0.1 mg Tablet 0.1 mg PO BID thiamine HCl (vitamin B1) 100 mg Tablet 100 mg PO DAILY pantoprazole 40 mg Tablet,Delayed Release (Dr/Ec) 40 mg PO DAILY folic acid 1 mg Tablet 1 mg PO DAILY lisinopril 40 mg Tablet 40 mg PO DAILY sertraline [Zoloft] 50 mg Tablet 50 mg PO DAILY apixaban 5 mg Tablet 5 mg PO BID metoprolol succinate 25 mg Capsule,Sprinkle,Er 24hr 25 mg PO BID acetaminophen [Tylenol] 325 mg Tablet 650 mg PO Q6H PRN PRN (Reason: Pain 1-10 Or Fever>100.7) Qty: 0 0RF diltiazem HCl 120 mg Capsule,Extended Release 24hr 120 mg PO Q12 Qty: 0 0RF Ensure Compact Liquid 118 ml PO TIDCM Qty: 0 0RF ondansetron 4 mg tablet,disintegrating 4 mg PO TID PRN (Reason: nausea and vomiting) Qty: 21 0RF Primary Care Provider: Ryan Barragan Referrals: Ryan Barragan MD [Primary Care Provider] - 3-5 Days Disposition Disposition: Intermediate Facility Discharge Location: [facility]
--- NOTE | 2022-01-30 10:05 | EKG12_ITS ---
Test Reason : PALPS Blood Pressure : / mmHG Vent. Rate : 138 BPM Atrial Rate : 138 BPM P-R Int : 150 ms QRS Dur : 076 ms QT Int : 320 ms P-R-T Axes : 000 016 194 degrees QTc Int : 484 ms Atrial flutter with 2 to 1 block Abnormal ECG Confirmed by BENIGNO ASCENCIO, JAGDISH ([id number]), staff editor ALONDRA WATKINS ([id number]) on 02/02/2022 10:32:06 AM Referred By: JC Confirmed By:JAGDISH PELAEZ MD
[2022-01-30] MEDS: dilTIAZem CD 120 MG Capsule PO (10:29)
[2022-01-30] MEDS: 0.9% Normal Saline 1,000 ML 1000 ML IV (10:29)
[2022-01-30 11:09] VITALS: BP 143/98; PULSE 138; RESP 17; TEMP 36.8; O2SAT 97
[2022-01-30 11:12] LABS: Absolute Lymphocyte Count 0.54 X10^3/uL (0.83-4.51); Absolute Neutrophil Count 7.1 X10^3/uL (2.0-7.7); Basophil# 0.03 X10^3/uL; Basophil% 0.4 % (0-1); Eosinophil# 0.12 X10^3/uL; Eosinophils% 1.5 % (0-5); Hematocrit 39.5 % (40-54); Hemoglobin 12.2 g/dL (13.0-16.5); Lymphocyte # 0.54 X10^3/ul (0.83-4.51); Lymphocyte % 6.6 % (19-41); Mean Corp Hgb Conc 30.9 g/dL (32-36); Mean Corpuscular Volume 97.1 fL (80-94); Mean Platelet Vol. 9.4 fl (6.2-12.0); Monocyte# 0.37 X10^3/uL; Monocyte% 4.5 % (0-10); NRBC Flagged by Analyzer 0 % (0-5); Neutrophil # 7.13 X10^3/uL (2.7-7.7); Neutrophil % 86.6 % (47-70); POSITIVE DIFFERENTIAL YES; Platelet Count 170 K/mm3 (150-450); RBC Distribution Width CV 14.5 % (11.6-14.6); RBC Distribution Width SD 51.8 fl (35.1-43.9); Red Blood Count 4.07 M/mm3 (4.6-6.2); White Blood Count 8.2 K/mm3 (4.4-11.0)
[2022-01-30 11:14] LABS: Differential Indicated SCAN CRITERIA MET
[2022-01-30 11:32] LABS: ALB/GLOB Ratio 0.8 RATIO (0.9-2.4); AST(SGOT) 14 U/L (15-37); Alanine Aminotransfer ALT/SGPT 36 U/L (16-61); Alkaline Phosphatase 74 U/L (45-117); Anion Gap 6 (5-15); BUN 20 mg/dL (7-18); BUN/Creat Ratio 21.4 RATIO (10-20); Calcium,Total 8.1 mg/dL (8.5-10.1); Chloride 108 mmol/L (98-107); Creatinine, Serum 0.94 mg/dL (0.70-1.30); EST Glomerular Filtration Rate 85 mL/min (>60); Est Glom Filt Rate - Afr Amer 102 mL/min (>60); Estimated Creatinine Clearance 74.42 ml/min; Globulin 3.7 g/dL (2.2-4.2); Glucose 122 mg/dL (74-106); Potassium 3.9 mmol/L (3.5-5.1); Protein, Total 6.7 g/dL (6.4-8.2); Sodium Level 138 mmol/L (136-145); Troponin-I HS 13 pg/mL (3.0-78.0)
[2022-01-30 11:34] LABS: Differential Comment SCANNED
[2022-01-30] MEDS: dilTIAZem 25 MG/5 ML Vial 20 MG IV BOLUS (12:50)
[2022-01-30 13:10] VITALS: PULSE 93
[2022-01-30 13:11] VITALS: BP 146/77; PULSE 93; RESP 23; O2SAT 98
[2022-01-30 13:29] VITALS: BP 116/67; PULSE 83; RESP 23; O2SAT 96
--- NOTE | 2022-01-30 13:35 | ED.RN ---
report given chantal
== END 2022-01-30 14:36 | disposition skilled nursing facility (03) ==
PROVIDERS: Emergency Provider Emergency Medicine; PCP Family Medicine; Visit Provider Emergency Medicine
DX: R00.0 Tachycardia, unspecified (principal); I11.0 Hypertensive heart disease with heart failure; I50.9 Heart failure, unspecified; I48.92 Unspecified atrial flutter; R10.9 Unspecified abdominal pain; R11.2 Nausea with vomiting, unspecified; K52.9 Noninfective gastroenteritis and colitis, unspecified; G47.33 Obstructive sleep apnea (adult) (pediatric); Z79.01 Long term (current) use of anticoagulants; Z86.16 Personal history of COVID-19; Z86.73 Personal history of transient ischemic attack (TIA), and cerebral infarction without residual deficits; Z79.899 Other long term (current) drug therapy
CPT/HCPCS: 74177; 80048; 80053; 80076; 83690; 84484; 85025; 93005; 96361; 96365; 96374; 96375; 99284; 99285; J7030; Q9967; A4216; J2405

== ENCOUNTER 2022-03-04 18:23 | Emergency (ER) | payer MEDICAID, SELFPAY ==
[2022-03-04 18:26] VITALS: BP 158/109; PULSE 143; RESP 19; TEMP 36.2; O2SAT 97; BMI 25.9
[2022-03-04 21:03] VITALS: BP 163/106; PULSE 137; RESP 18; O2SAT 94
[2022-03-04 21:17] VITALS: O2SAT 98
--- NOTE | 2022-03-04 21:20 | RAD_ITS ---
INDICATION: Chest pain, dizziness, nausea, headache EXAMINATION/TECHNIQUE: X-RAY - XR Chest 1 View COMPARISON: 01/08/2022 FINDINGS: LINES/DEVICES: None. LUNGS: No consolidation, edema or effusion. No pneumothorax. MEDIASTINUM AND CARDIOVASCULAR STRUCTURES: Borderline enlarged heart. Central airways and mediastinal contour are unremarkable. RAD/Chest 1 View (Portable) IMPRESSION: No radiographic evidence of acute cardiopulmonary disease. Electronically Signed: Ryan Bhatti MD at 21:31 EST ,
[2022-03-04 21:39] LABS: Absolute Lymphocyte Count 0.53 X10^3/uL (0.83-4.51); Absolute Neutrophil Count 6.1 X10^3/uL (2.0-7.7); Basophil# 0.06 X10^3/uL; Basophil% 0.8 % (0-1); Eosinophil# 0.21 X10^3/uL; Eosinophils% 2.8 % (0-5); Hematocrit 36.9 % (40-54); Hemoglobin 12.1 g/dL (13.0-16.5); Lymphocyte # 0.53 X10^3/ul (0.83-4.51); Mean Corp Hgb Conc 32.8 g/dL (32-36); Mean Corpuscular Hgb 29.7 pg (27.0-32.0); Mean Corpuscular Volume 90.7 fL (80-94); Mean Platelet Vol. 9.8 fl (6.2-12.0); Monocyte# 0.59 X10^3/uL; Monocyte% 7.8 % (0-10); NRBC Flagged by Analyzer 0 % (0-5); Neutrophil % 80.9 % (47-70); POSITIVE DIFFERENTIAL YES; Platelet Count 262 K/mm3 (150-450); RBC Distribution Width CV 14.6 % (11.6-14.6); RBC Distribution Width SD 48.8 fl (35.1-43.9); Red Blood Count 4.07 M/mm3 (4.6-6.2); White Blood Count 7.5 K/mm3 (4.4-11.0)
[2022-03-04 21:57] LABS: Differential Indicated SCAN CRITERIA MET
[2022-03-04 22:09] LABS: Differential Comment SCANNED
[2022-03-04 22:11] LABS: BNP,B-Type NATRIURETIC PEPTIDE 141.8 pg/mL (0-100)
--- NOTE | 2022-03-04 22:11 | EDS_ITS ---
HPI History of Present Illness Chief Complaint: General Illness Narrative Narrative: Presented with tachycardia and hypertension.when the patient is asked how long his heart rate has been fast he states all day. When I asked him if it was only today he states it is every day. When asked him how long he says always. He states it is the pills they give me. He cannot tell me what feels he is talking about. He says he is on Eliquis and he believes he is taking it. He states that care home provides him all his medications. He has not missed any doses that he knows of. He denies having a fever. He states he feels a little short of breath when he is walking but denies a cough. [facility] Medical History Anemia Anxiety Atrial flutter CHF (congestive heart failure) COVID-19 Fracture of first lumbar vertebra HTN (hypertension) Hyperlipidemia Normocytic anemia YULIANA (obstructive sleep apnea) Other cervical disc degeneration, unspecified cervical region Paroxysmal atrial fibrillation Syncope and collapse Syncope and collapse TIA (transient ischemic attack) Type 2 diabetes mellitus Home Medications apixaban 5 mg tablet 5 mg PO BID 01/08/22 [History Last Taken Unknown] clonidine HCl 0.1 mg tablet 0.1 mg PO BID 01/08/22 [History Last Taken Unknown] folic acid 1 mg tablet 1 mg PO DAILY 01/08/22 [History Last Taken Unknown] lisinopril 40 mg tablet 40 mg PO DAILY 01/08/22 [History Last Taken Unknown] pantoprazole 40 mg tablet,delayed release 40 mg PO DAILY 01/08/22 [History Last Taken Unknown] sertraline 50 mg tablet (Zoloft) 50 mg PO DAILY 01/08/22 [History Last Taken Unknown] thiamine HCl (vitamin B1) 100 mg tablet 100 mg PO DAILY 01/08/22 [History Last Taken Unknown] acetaminophen 325 mg tablet (Tylenol) 650 mg PO Q6H PRN PRN Pain 1-10 Or Fever>100.7 #0 tabs 01/13/22 [Rx Last Taken Unknown] diltiazem HCl 120 mg capsule,extended release 24 hr 120 mg PO Q12 #0 caps 10/27 [Rx Last Taken Unknown] food supplemt, lactose-reduced (Ensure Compact oral liquid) 118 ml PO TIDCM #0 mL 01/13/22 [Rx Last Taken Unknown] ondansetron 4 mg disintegrating tablet 4 mg PO TID PRN nausea and vomiting #21 tabs 01/30/22 [Rx Last Taken Unknown] buspirone 5 mg tablet 10 mg PO BID 02/18/22 [History Last Taken Unknown] magnesium hydroxide 400 mg/5 mL oral suspension (Milk of Magnesia) 30 ml PO DAILY PRN Constipation 03/04/22 [History Last Taken Unknown] metoprolol succinate 50 mg capsule sprinkle, ext. release 24 hr 25 mg PO BID 03/04/22 [History Last Taken Unknown] Allergy/AdvReac Type Severity Reaction Status Date / Time amlodipine Allergy NEEDS Verified 03/04/22 18:28 FOLLOW-UP amoxicillin [From Amoxil] Allergy NEEDS Verified 03/04/22 18:28 FOLLOW-UP erythromycin base Allergy NEEDS Verified 03/04/22 18:28 FOLLOW-UP famotidine [From Pepcid] Allergy NEEDS Verified 03/04/22 18:28 FOLLOW-UP fish oil Allergy NEEDS Verified 03/04/22 18:28 FOLLOW-UP hydrochlorothiazide Allergy NEEDS Verified 03/04/22 18:28 FOLLOW-UP hydroxyzine Allergy NEEDS Verified 03/04/22 18:28 FOLLOW-UP lorazepam Allergy NEEDS Verified 03/04/22 18:28 FOLLOW-UP Surgical History H/O knee surgery Social History housing: care home Smoking Status: Never smoker alcohol intake: former substance use type: does not use ROS ROS ED Constitutional Constitutional ED: Denies chills or fever(s) Eyes Eyes: Denies change in vision or diplopia ENT ENT ED: Denies rhinorrhea or sore throat Cardiovascular Cardiovascular: Reports palpitations and racing heartbeat; Denies chest pain Respiratory/Chest Respiratory/Chest: Reports dyspnea and dyspnea on exertion; Denies cough Gastrointestinal Gastrointestinal: Denies abdominal pain or constipation Genitourinary Genitourinary ED: Denies dysuria Musculoskeletal Musculoskeletal: Denies arthralgias or back pain Integumentary Denies abscess or Abrasions Neurologic Neurologic: Denies headache(s) or paresthesias Psychiatric Psychiatric: Denies anxiety or depression EXAM Physical Exam Const Vital Signs: 03/04/22 18:26 03/04/22 21:03 03/04/22 21:03 Temperature 97.2 F L Temperature Source Temporal Pulse Rate 143 H 137 H Respiratory Rate 19 H 18 Respiratory Pattern Normal Blood Pressure 158/109 H 163/106 H Blood Pressure Mean 125 125 Pulse Ox 97 94 Oxygen Delivery Method Room Air Room Air 03/04/22 21:17 03/04/22 22:39 03/04/22 22:55 Temperature Temperature Source Pulse Rate 136 H 137 H Respiratory Rate 18 Respiratory Pattern Blood Pressure 142/88 H 141/90 H Blood Pressure Mean 106 107 Pulse Ox 98 95 Oxygen Delivery Method Room Air Room Air 03/04/22 23:28 Temperature Temperature Source Pulse Rate 86 Respiratory Rate 18 Respiratory Pattern Blood Pressure Blood Pressure Mean Pulse Ox 94 Oxygen Delivery Method Positive well nourished HEENT Reports moist mucous membranes Eyes PERRL and EOMs intact bilaterally General Eye ED: Negative for pale conjunctiva or scleral icterus Chest Wall inspection of chest normal and palpation of chest normal Resp normal respiratory effort and clear to auscultation bilaterally Auscultation: Negative for rales, rhonchi or wheezes Cardio regular rhythm Rate: tachycardic GI normal to inspection, nondistended, normoactive bowel sounds Extremity normal to inspection Neuro oriented x3 and CN's II-XII intact bilaterally Sensorium / Orientation: alert Psych mental status grossly normal Skin no rashes or lesions noted MDM MDM MDM Narrative Medical decision making narrative: Patient presented with rapid heartbeat. He denies chest pain. He states that when he walks he feels like he is a little bit short of breath but at rest he is fine. EKG was obtained and on my interpretation this appears to be a sinus tachycardia with a ventricular rate of 138 bpm. Patient was hypertensive at 150/109. Initially given a dose of labetalol 20 mg IV. His blood pressure responded to 142/88 but his heart rate only came out of 136. He is given Cardizem 20 mg IV. Review of the medical record shows that he has a history of a flutter. He is anticoagulated on Eliquis. I have low suspicion for PE. CBC shows a normal white blood cell count. Hemoglobin hematocrit are stable. Platelets are normal. BNP slightly elevated at 141.8. Chest x-ray on my interpretation shows no acute cardiopulmonary process. The radiologist agrees. Patient's heart rate is now controlled with a heart rate in the 70s. He does appear to be in a flutter on the monitor. Ultimately his work-up has been normal. I will discuss case with Dr. Mcdonald who is on-call for Dr. Barragan. I feel the patient can be discharged home. I was able to get a hold of Dr. Mcdonald. Patient is to continue his metoprolol 50 mg p.o. twice daily and his diltiazem 120 mg p.o. twice daily at the care home. I recommend he talk to Dr. Barragan tomorrow. I do not see any need for admission Impression: 1. Tachycardia 2. Hypertension 3. Dyspnea Lab Data Labs: Laboratory Results - last 24 hr 03/04/22 03/04/22 03/04/22 18:16 18:16 18:16 WBC 7.5 RBC 4.07 L Hgb 12.1 L Hct 36.9 L MCV 90.7 MCH 29.7 MCHC 32.8 RDW Std Deviation 48.8 H RDW Coeff of Roberto 14.6 Plt Count 262 MPV 9.8 Immature Gran % (Auto) 0.700 Neut % (Auto) 80.9 H Lymph % (Auto) 7.0 L [place] % (Auto) 7.8 Eos % (Auto) 2.8 Baso % (Auto) 0.8 Absolute Neuts (auto) 6.1 Absolute Lymphs (auto) 0.53 L Nucleated RBC % 0 Differential Comment SCANNED Sodium Cancelled Potassium Cancelled Chloride Cancelled Carbon Dioxide Cancelled Anion Gap Cancelled BUN Cancelled Creatinine Cancelled Estim Creat Clear Calc Cancelled Est GFR (MDRD) Af Amer Cancelled Est GFR (MDRD) Non-Af Cancelled BUN/Creatinine Ratio Cancelled Glucose Cancelled Calcium Cancelled Total Bilirubin Cancelled Direct Bilirubin Cancelled AST Cancelled ALT Cancelled Alkaline Phosphatase Cancelled Troponin I High Sens Cancelled B-Natriuretic Peptide Total Protein Cancelled Albumin Cancelled Globulin Cancelled Lipase Cancelled Ethyl Alcohol Cancelled 03/04/22 03/04/22 03/04/22 18:16 22:20 22:20 WBC RBC Hgb Hct MCV MCH MCHC RDW Std Deviation RDW Coeff of Roberto Plt Count MPV Immature Gran % (Auto) Neut % (Auto) Lymph % (Auto) [place] % (Auto) Eos % (Auto) Baso % (Auto) Absolute Neuts (auto) Absolute Lymphs (auto) Nucleated RBC % Differential Comment Sodium 137 Potassium 4.0 Chloride 104 Carbon Dioxide 26.0 Anion Gap 7 BUN 18 Creatinine 1.07 Estim Creat Clear Calc 61.26 Est GFR (MDRD) Af Amer 88 Est GFR (MDRD) Non-Af 72 BUN/Creatinine Ratio 16.8 Glucose 145 H Calcium 8.8 Total Bilirubin 0.60 Direct Bilirubin 0.18 AST 19 ALT 28 Alkaline Phosphatase 77 Troponin I High Sens 18 B-Natriuretic Peptide 141.8 H Total Protein 7.4 Albumin 3.7 Globulin 3.7 Lipase 117 Ethyl Alcohol < 3.0 Radiography Diagnostic Testing: Clinical Impression(s) from Imaging Studies Chest X-Ray 03/04/22 21:20 IMPRESSION: No radiographic evidence of acute cardiopulmonary disease. Electronically Signed: Ryan Bhatti MD at 21:31 EST Reading Location ID and State: [address] [place] [address] Tel , Service support , Discharge Plan Triage Chief Complaint: General Illness ED Provider: [place] Dx/Rx/DC Orders Instructions: ED Tachycardia: PAT Prescriptions: No Action clonidine HCl 0.1 mg Tablet 0.1 mg PO BID thiamine HCl (vitamin B1) 100 mg Tablet 100 mg PO DAILY pantoprazole 40 mg Tablet,Delayed Release (Dr/Ec) 40 mg PO DAILY folic acid 1 mg Tablet 1 mg PO DAILY lisinopril 40 mg Tablet 40 mg PO DAILY sertraline [Zoloft] 50 mg Tablet 50 mg PO DAILY apixaban 5 mg Tablet 5 mg PO BID acetaminophen [Tylenol] 325 mg Tablet 650 mg PO Q6H PRN PRN (Reason: Pain 1-10 Or Fever>100.7) Qty: 0 0RF diltiazem HCl 120 mg Capsule,Extended Release 24hr 120 mg PO Q12 Qty: 0 0RF Ensure Compact Liquid 118 ml PO TIDCM Qty: 0 0RF buspirone 5 mg tablet 10 mg PO BID ondansetron 4 mg tablet,disintegrating 4 mg PO TID PRN (Reason: nausea and vomiting) Qty: 21 0RF magnesium hydroxide [Milk of Magnesia] 400 mg/5 mL Suspension 30 ml PO DAILY PRN (Reason: Constipation) metoprolol succinate 50 mg capsule,sprinkle,ER 24hr 25 mg PO BID Primary Care Provider: Ryan Barragan Referrals: Ryan Barragan MD [Primary Care Provider] - Disposition Disposition: Home, Self Care
[2022-03-04] MEDS: Labetalol (Prefilled) 20 MG/4 ML IV (22:16)
[2022-03-04 22:39] VITALS: BP 142/88; PULSE 136; RESP 18; O2SAT 95
[2022-03-04 22:50] LABS: Alcohol, Blood (Medical)-Serum < 3.0 mg/dL
[2022-03-04] MEDS: dilTIAZem 25 MG/5 ML Vial 20 MG IV BOLUS (22:54)
[2022-03-04 22:55] VITALS: BP 141/90; PULSE 137
[2022-03-04 22:57] LABS: AST(SGOT) 19 U/L (15-37); Alanine Aminotransfer ALT/SGPT 28 U/L (16-61); Albumin, Serum 3.7 g/dL (3.2-5.0); Alkaline Phosphatase 77 U/L (45-117); Anion Gap 7 (5-15); BUN 18 mg/dL (7-18); BUN/Creat Ratio 16.8 RATIO (10-20); Bilirubin, Direct 0.18 mg/dL (0.00-0.30); Calcium,Total 8.8 mg/dL (8.5-10.1); Chloride 104 mmol/L (98-107); Creatinine, Serum 1.07 mg/dL (0.70-1.30); EST Glomerular Filtration Rate 72 mL/min (>60); Est Glom Filt Rate - Afr Amer 88 mL/min (>60); Estimated Creatinine Clearance 61.26 ml/min; Globulin 3.7 g/dL (2.2-4.2); Glucose 145 mg/dL (74-106); Lipase 117 U/L (73-393); Protein, Total 7.4 g/dL (6.4-8.2); Sodium Level 137 mmol/L (136-145); Troponin-I HS (w/2H Reflex) 18 pg/mL (3.0-78.0)
[2022-03-04 23:28] VITALS: PULSE 86; RESP 18; O2SAT 94
--- NOTE | 2022-03-04 23:51 | NURSING ---
PAGED OUT AND CALLED AND LEFT MESSAGE TO DR HEAD. NO CALL BACK.
[2022-03-05] VITALS (7 sets, daily range): BP systolic 113–158; BP diastolic 55–108; PULSE 92–138; RESP 18–28; O2SAT 93–97
[2022-03-05 00:27] LABS: Reflex Troponin-HS? (from REC) Y
[2022-03-05] MEDS: dilTIAZem 25 MG/5 ML Vial 10 MG IV BOLUS (01:14)
== END 2022-03-05 02:58 | disposition home or self-care (01) ==
PROVIDERS: Emergency Provider Student in an Organized Health Care Education/Training Program; PCP Family Medicine; Visit Provider Student in an Organized Health Care Education/Training Program
DX: R00.0 Tachycardia, unspecified (principal); I11.0 Hypertensive heart disease with heart failure; I50.9 Heart failure, unspecified; E11.9 Type 2 diabetes mellitus without complications; R06.00 Dyspnea, unspecified; E78.5 Hyperlipidemia, unspecified
CPT/HCPCS: 71045; 80048; 80076; 82077; 83690; 83880; 84484; 85025; 93005; 96374; 96375; 96376; 99285; A4216

== ENCOUNTER → 2023-04-01 | Outpatient (CLI) | payer MEDICAID, SELFPAY ==
[2023-04-01 15:41] LABS: Absolute Lymphocyte Count 1.35 X10^3/uL (0.83-4.51); Absolute Neutrophil Count 5.4 X10^3/uL (2.0-7.7); Basophil# 0.09 X10^3/uL; Basophil% 1.1 % (0-1); Eosinophil# 0.24 X10^3/uL; Hematocrit 35.7 % (40-54); Hemoglobin 11.4 g/dL (13.0-16.5); Lymphocyte # 1.35 X10^3/ul (0.83-4.51); Mean Corp Hgb Conc 31.9 g/dL (32-36); Mean Corpuscular Hgb 28.9 pg (27.0-32.0); Mean Corpuscular Volume 90.4 fL (80-94); Mean Platelet Vol. 9.1 fl (6.2-12.0); Monocyte# 0.76 X10^3/uL; Monocyte% 9.6 % (0-10); NRBC Flagged by Analyzer 0 % (0-5); Neutrophil # 5.43 X10^3/uL (2.7-7.7); Neutrophil % 68.7 % (47-70); Platelet Count 288 K/mm3 (150-450); RBC Distribution Width CV 14.6 % (11.6-14.6); RBC Distribution Width SD 48.1 fl (35.1-43.9); Red Blood Count 3.95 M/mm3 (4.6-6.2); White Blood Count 7.9 K/mm3 (4.4-11.0)
[2023-04-01 16:33] LABS: AST(SGOT) 18 U/L (15-37); Alanine Aminotransfer ALT/SGPT 30 U/L (16-61); Albumin, Serum 3.9 g/dL (3.2-5.0); Alkaline Phosphatase 68 U/L (45-117); Anion Gap 6 (5-15); BUN 31 mg/dL (7-18); BUN/Creat Ratio 32.6 RATIO (10-20); Calcium,Total 9.5 mg/dL (8.5-10.1); Chloride 107 mmol/L (98-107); Creatinine, Serum 0.95 mg/dL (0.70-1.30); EST Glomerular Filtration Rate 83 mL/min (>60); Est Glom Filt Rate - Afr Amer 100 mL/min (>60); Glucose 109 mg/dL (74-106); Potassium 4.5 mmol/L (3.5-5.1); Protein, Total 7.9 g/dL (6.4-8.2); Sodium Level 138 mmol/L (136-145); Thyroid Stim Hormone (TSH) 1.73 uIU/mL (0.358-3.74)
== END | disposition home or self-care (01) ==
LOC: LAB 14:29
PROVIDERS: PCP Family Medicine; Referring Provider Internal Medicine Cardiovascular Disease; Visit Provider Internal Medicine Cardiovascular Disease
DX: I35.1 Nonrheumatic aortic (valve) insufficiency (principal); I11.0 Hypertensive heart disease with heart failure; I50.9 Heart failure, unspecified; I48.92 Unspecified atrial flutter; I34.0 Nonrheumatic mitral (valve) insufficiency; R53.83 Other fatigue; E78.5 Hyperlipidemia, unspecified; G47.33 Obstructive sleep apnea (adult) (pediatric)
CPT/HCPCS: 36415; 80053; 84443; 85025

== ENCOUNTER → 2023-05-10 | Outpatient (CLI) | payer MEDICAID, SELFPAY ==
--- NOTE | 2023-05-10 13:53 | ECHOD_ITS ---
Reason For Study: FATIGUE, AI, HEART FAILURE Procedure This was a 2D Doppler, Color Flow transthoracic echocardiogram. Exam performed in department. Left Ventricle Normal size and thickness. The left ventricular ejection fraction is 60 %. At least grade 2 diastolic dysfunction. Right Ventricle Normal right ventricle. Atria There is severe biatrial dilatation. Mitral Valve Mild (1+) mitral valve insufficiency. Tricuspid Valve Trivial tricuspid valve insufficiency. Right ventricular systolic pressure estimated to be 53 mmHg. Aortic Valve Aortic sclerosis, no stenosis. Mild (1+) aortic valve insufficiency. Pulmonic Valve The pulmonic valve is not well visualized. Great Vessels Normal sized aortic root. Pericardium/Pleural No pericardial effusion. MMode/2D Measurements & Calculations LVIDd: 4.5 cm IVSd: 1.2 cm Ao root diam: 3.5 cm LVIDs: 3.1 cm LVPWd: 1.2 cm RVDd: 2.7 cm FS: 31.6 % LAV(MOD-bp): 95.3 ml LVAd ap4: 20.1 cm2 LVAd ap2: 26.1 cm2 LAV(MOD-bp) Indexed: 47.7 ml/m2 LVLd ap4: 6.7 cm LVLd ap2: 7.4 cm LAV(MOD-sp2): 85.4 ml EDV(MOD-sp4): 54.9 ml EDV(MOD-sp2): 82.0 ml LAV(MOD-sp4): 102.4 ml EDV(sp4-el): 51.6 ml EDV(sp2-el): 78.4 ml LVAs ap4: 12.5 cm2 LVAs ap2: 16.1 cm2 LVLs ap4: 5.5 cm LVLs ap2: 6.2 cm ESV(MOD-sp4): 26.5 ml ESV(MOD-sp2): 37.7 ml ESV(sp4-el): 23.9 ml ESV(sp2-el): 35.5 ml EF(MOD-sp4): 51.8 % EF(MOD-sp2): 54.0 % EF(sp4-el): 53.7 % SV(MOD-sp4): 28.4 ml SV(MOD-sp2): 44.3 ml SV(sp4-el): 27.7 ml LA dimension(2D): 4.6 cm LA A4 area: 29.4 cm2 RA A4 area: 19.7 cm2 TAPSE: 1.9 cm Doppler Measurements & Calculations MV E max bryant: 93.6 cm/sec MV V2 max: 100.7 cm/sec Ao V2 max: 151.9 cm/sec MV max P.1 mmHg Ao max P.3 mmHg MV V2 mean: 41.1 cm/sec Ao V2 mean: 103.0 cm/sec MV mean P.92 mmHg Ao mean P.0 mmHg MV V2 VTI: 22.3 cm Ao V2 VTI: 31.6 cm AV (velocity ratio): 0.41 LV V1 max: 65.3 cm/sec PA V2 max: 80.5 cm/sec TR max bryant: 309.4 cm/sec LV V1 max P.7 mmHg PA V2 mean: 57.2 cm/sec TR max P.3 mmHg LV V1 mean P.84 mmHg LV V1 mean: 42.4 cm/sec LV V1 VTI: 12.9 cm ECHO/Echo Complete Interpretation Summary The left ventricular ejection fraction is 60 %. At least grade 2 diastolic dysfunction There is severe biatrial dilatation. Mild (1+) mitral valve insufficiency. Aortic sclerosis, no stenosis. Mild (1+) aortic valve insufficiency. Right ventricular systolic pressure estimated to be 53 mmHg. Ordering Physician: Pavel Soares Referring Physician: Ryan Barragan Performed By: Elen Rivera RDCS, RVT
== END | disposition home or self-care (01) ==
LOC: CVS 13:52
PROVIDERS: PCP Family Medicine; Referring Provider Internal Medicine Cardiovascular Disease; Visit Provider Internal Medicine Cardiovascular Disease
DX: I35.1 Nonrheumatic aortic (valve) insufficiency (principal); I11.0 Hypertensive heart disease with heart failure; I50.9 Heart failure, unspecified; I48.92 Unspecified atrial flutter; I34.0 Nonrheumatic mitral (valve) insufficiency; R53.83 Other fatigue; E78.5 Hyperlipidemia, unspecified; G47.33 Obstructive sleep apnea (adult) (pediatric)
CPT/HCPCS: 93306

== ENCOUNTER 2024-02-14 21:26 | Emergency (ER) | payer MEDICAID, SELFPAY ==
[2024-02-14 21:35] VITALS: BP 138/77; PULSE 78; RESP 16; TEMP 36.6; O2SAT 97; BMI 28.9
--- NOTE | 2024-02-14 22:08 | RAD_ITS ---
STUDY: X-RAY CHEST REASON FOR EXAM: Male, 73 years old. hypotension TECHNIQUE: Single frontal view of the chest. COMPARISON: March 04, 2022 FINDINGS: The lungs are clear and expanded. There is no demonstrated pleural abnormality. Cardiomegaly. Normal mediastinum and pernell. Normal visualized pulmonary arteries. Normal visualized aortic arch and descending thoracic aorta. Normal visualized thoracic spine. Normal visualized ribs, clavicles, and shoulders. There is no demonstrated abnormality of the visualized soft tissue structures of the upper abdomen. RAD/Chest PA and Lateral IMPRESSION: No acute disease Electronically Signed: Juan Espino MD at 23:50 EST ,
--- NOTE | 2024-02-14 22:08 | EKG12_ITS ---
Test Reason : Blood Pressure : */* mmHG Vent. Rate : 65 BPM Atrial Rate : 260 BPM P-R Int : * ms QRS Dur : 94 ms QT Int : 426 ms P-R-T Axes : 112 -3 25 degrees QTcB Int : 443 ms Atrial flutter with 4:1 A-V conduction Nonspecific ST and T wave abnormality Abnormal ECG Confirmed by BENIGNO ASCENCIO, JAGDISH ([id number]), editorial director VICTOR HUGO GUZMAN ([id number]) on 02/15/2024 8:18:41 AM Referred By: Confirmed By: JAGDISH PELAEZ MD
--- NOTE | 2024-02-14 22:09 | EDS_ITS ---
HPI History of Present Illness Chief Complaint: Hypotension Informant: patient Onset/Context/Timing Onset: Today Narrative Narrative: 73-year-old male past medical history of A-fib, CHF, diabetes, TIA on Eliquis. Currently a resident of the local extended care facility. Sent in tonight due to reported hypotension. Patient states I feel fine. He denies any symptoms of dizziness or lightheadedness. He denies any nausea, vomiting or diarrhea. He denies any fever. He denies any dysuria or melena. He has no complaints currently. His pressures stable currently. Prior similar symptoms: No Recent Illness/Hospitalization: No [facility] Medical History Syncope and collapse Paroxysmal atrial fibrillation Type 2 diabetes mellitus Normocytic anemia Atrial flutter Fracture of first lumbar vertebra TIA (transient ischemic attack) Other cervical disc degeneration, unspecified cervical region Hyperlipidemia HTN (hypertension) Anxiety Atrial flutter Syncope and collapse YULIANA (obstructive sleep apnea) CHF (congestive heart failure) COVID-19 Anemia Home Medications ?Medication ?Instructions ?Recorded ?Last Taken ?Type apixaban 5 mg tablet 5 mg PO BID 01/08/22 Unknown History clonidine HCl 0.1 mg tablet 0.1 mg PO Q8H 01/08/22 Unknown History lisinopril 40 mg tablet 40 mg PO DAILY 01/08/22 Unknown History food supplemt, lactose-reduced 118 ml PO TIDCM #0 mL 01/13/22 Unknown Rx (Ensure Compact oral liquid) magnesium hydroxide 400 mg/5 mL 30 ml PO DAILY PRN Constipation 03/04/22 Unknown History oral suspension (Milk of Magnesia) diltiazem HCl 360 mg 360 mg PO DAILY #90 caps 04/01/22 Unknown Rx capsule,extended release 24 hr latanoprost 0.005 % eye drops 1 drp ophthalmic (eye) QPM 09/14/22 Unknown History ondansetron 4 mg disintegrating 4 mg PO Q8H PRN nausea and vomiting 09/14/22 Unknown History tablet sertraline 100 mg tablet 100 mg PO DAILY 09/14/22 Unknown History acetaminophen 500 mg tablet 1,000 mg PO Q8H PRN PRN fever or 04/01/23 Unknown History pain albuterol sulfate 2.5 mg/3 mL 2.5 mg inhalation Q6H PRN 04/01/23 Unknown History (0.083 %) solution for nebulization shortness of breath or wheezing divalproex 125 mg capsule,delayed 125 mg PO BID 04/01/23 Unknown History release sprinkle docusate sodium 100 mg tablet 100 mg PO BID 04/01/23 Unknown History guaifenesin 600 mg tablet, 600 mg PO Q12H PRN cough 04/01/23 Unknown History extended release 12 hr (Mucinex) metformin 500 mg tablet 500 mg PO DAILY 04/01/23 Unknown History metoprolol succinate 50 mg 50 mg PO DAILY 04/01/23 Unknown History tablet,extended release 24 hr trazodone 50 mg tablet 50 mg PO BID PRN 04/01/23 Unknown History Allergy/AdvReac Type Severity Reaction Status Date / Time amlodipine Allergy NEEDS Verified 02/14/24 21:37 FOLLOW-UP amoxicillin (From Amoxil) Allergy NEEDS Verified 02/14/24 21:37 FOLLOW-UP erythromycin base Allergy NEEDS Verified 02/14/24 21:37 FOLLOW-UP famotidine (From Pepcid) Allergy NEEDS Verified 02/14/24 21:37 FOLLOW-UP fish oil Allergy NEEDS Verified 02/14/24 21:37 FOLLOW-UP hydrochlorothiazide Allergy NEEDS Verified 02/14/24 21:37 FOLLOW-UP hydroxyzine Allergy NEEDS Verified 02/14/24 21:37 FOLLOW-UP lorazepam Allergy NEEDS Verified 02/14/24 21:37 FOLLOW-UP Surgical History H/O knee surgery Social History housing: [facility] Smoking Status: Never smoker alcohol intake: former substance use type: does not use ROS ROS ED ROS Narrative Patient denies recent illness. Constitutional Constitutional ED: Denies chills or fever(s) Eyes Eyes: Denies blurry vision ENT ENT ED: Denies ear pain Cardiovascular Cardiovascular: Denies chest pain Respiratory/Chest Respiratory/Chest: Denies cough or dyspnea Gastrointestinal Gastrointestinal: Denies abdominal pain Genitourinary Genitourinary ED: Denies dysuria or hematuria Musculoskeletal Musculoskeletal: Denies arthralgias Integumentary Denies abscess or Abrasions Neurologic Neurologic: Denies headache(s) Psychiatric Psychiatric: Denies anxiety or depression Endocrine Endocrinology: Denies cold intolerance Hematologic/Lymphatic Hematologic/Lymphatic: Reports none Allergic/Immunologic Allergic/Immunologic ED: Denies mouth swelling, tongue swelling or urticaria EXAM Physical Exam Narrative Exam Narrative: Well-appearing 73-year-old male. Sitting upright in bed. No family present in the room. Vital signs are stable afebrile. Pulse ox 97% on room air no hypoxia. He is in no distress. H EENT exam unremarkable. Moist mucous membranes. Pupils are round and reactive light. Normal speech. Neck nontender. Lungs clear to auscultation bilaterally. Heart irregular rate about 80 no murmur. Chest wall and ribs nontender. Abdomen soft nontender. No peritoneal signs. No pulsatile mass. Moving all 4 extremities. Nontender. Trace edema. No cords. Normal site worker strength. Dorsi plantarflexion intact. He is awake and alert and answering questions. Const Vital Signs: 02/14/24 21:35 02/14/24 21:37 02/14/24 23:43 Temperature 98 F Temperature Source Oral Pulse Rate 78 Respiratory Rate 16 Respiratory Effort Normal Non-Labored Respiratory Pattern Normal Blood Pressure 138/77 H 148/85 H Blood Pressure Mean 97 106 Pulse Ox 97 Oxygen Delivery Method Room Air Positive well nourished and well developed; Negative for obese, cachectic, contractures or unkempt General Appearance ED: well developed and NAD; Negative for unkempt, cachectic, contractures, cyanotic, diaphoretic or pallor Nutritional Appearance: Negative for cachectic or obese HEENT Reports moist mucous membranes Negative for tenderness Eyes EOMs intact bilaterally General Eye ED: Negative for pale conjunctiva or scleral icterus Neck no lymphadenopathy, supple and no JVD Chest Wall inspection of chest normal and palpation of chest normal Resp normal respiratory effort and clear to auscultation bilaterally Effort and Inspection: Negative for retractions Auscultation: Negative for rales, rhonchi, wheezes or diminished lung sounds Cardio Negative for regular rate or regular rhythm Rhythm: abnormal rhythm GI normal to inspection, nondistended, normoactive bowel sounds, non-tender, non- distended and no masses Back/Spine no CVA tenderness General Back: Negative for CVA tenderness Cervical Spine: Negative for cervical spine tenderness Thoracic Spine / Upper Back: Negative for thoracic spinal tenderness or paraspinal muscle tenderness Lumbar Spine / Lower Back: Negative for lumbar spinal tenderness Extremity Negative for normal to inspection Extremity Narrative: Trace edema bilaterally. Nontender. General Extremety ED: Yes edema; Negative for tenderness General Extremity: edema Neuro oriented x3 and CN's II-XII intact bilaterally Sensorium / Orientation: alert; Negative for orientation impaired, lethargic or stuporous Motor Exam: strength 5/5 throughout Psych mental status grossly normal Appearance: Negative for unkempt Attitude: No agitated Mood & Affect: Negative for depressed, anxious or tearful Skin no rashes or lesions noted and no wounds General Skin Exam: Negative for jaundice or pallor Lesions: No lesion noted Rashes: No rashes noted Trauma: Negative for abrasion Wounds: Negative for wounds noted MDM MDM MDM Narrative Medical decision making narrative: 73-year-old male reported hypotension at [facility] currently normotensive with pressure 138/77. No complaints. No fever. Screening labs will be obtained. Repeat exam patient is doing well at 12:13 AM. Vital signs are remained stable the entire time. Has not been hypotensive. He will be given a 500 cc fluid bolus for his dehydration. I will speak to the [facility] and he will be sent back. History & Record Review Discussion w/independent historian: Patient Additional record(s) reviewed:: Prior inpatient record, Prior outpatient record, Prior ED visit and Prior labs Lab Data Attestation: I reviewed the patient's lab results. Lab results narrative: White count 8 H&H 11.1 and 34. Platelets 212. Electrolytes show a gap of 7. BUN of 42 creatinine 1.44 consistent with dehydration. Glucose 93. Lactic acid 1.7. Liver enzymes unremarkable. Chest x-ray chronic changes. Lactic acid 1.7. Labs are consistent with baseline. We are going to obtain a urine and the patient refused. Labs: Laboratory Results - last 24 hr 02/14/24 22:01 WBC 8.1 RBC 3.82 L Hgb 11.1 L Hct 34.4 L MCV 90.1 MCH 29.1 MCHC 32.3 RDW Std Deviation 52.0 H RDW Coeff of Roberto 15.8 H Plt Count 212 MPV 9.8 Immature Gran % (Auto) 0.400 Neut % (Auto) 63.2 Lymph % (Auto) 19.9 Mellette % (Auto) 11.1 H Eos % (Auto) 4.5 Baso % (Auto) 0.9 Absolute Neuts (auto) 5.2 Absolute Lymphs (auto) 1.62 Nucleated RBC % 0 Sodium 139 Potassium 4.4 Chloride 109 H Carbon Dioxide 23.0 Anion Gap 7 BUN 42 H Creatinine 1.44 H Estim Creat Clear Calc 48.85 Est GFR (MDRD) Af Amer 62 Est GFR (MDRD) Non-Af 51 L BUN/Creatinine Ratio 29.2 H Glucose 93 Lactic Acid 1.7 Calcium 9.0 Total Bilirubin 0.20 AST 14 L ALT 25 Alkaline Phosphatase 55 Troponin I High Sens 23 Total Protein 7.4 Albumin 3.9 Globulin 3.5 Albumin/Globulin Ratio 1.1 Radiography Chest X-Ray - ED: 2 View, Read by ED Physician, Read by Radiologist, Lungs, Mediastinum, Bony Structures, No Acute Disease and Chronic Changes Diagnostic Testing: Clinical Impression(s) from Imaging Studies Chest X-Ray 02/14/24 22:08 IMPRESSION: No acute disease Electronically Signed: Juan Espino MD at 23:50 EST Reading Location ID and State: [facility] / [place] Tel , Service support , Chest x-ray, 2 views, AP and lateral, interpreted both by myself and radiologist shows no acute abnormality. Chronic changes. No infiltrate. Rhythm Strip Rhythm Strip: Atrial flutter Rate: 65 Ectopy: None EKG Initial EKG: Attestation: I personally reviewed and interpreted this EKG as follows: Interpretation: Atrial Flutter Comments: Atrial flutter with 41 conduction rate of 65 no acute signs of PR or ischemia. Discharge Plan Triage Chief Complaint: Hypotension ED Provider: Yimi Cruz Dx/Rx/DC Orders Clinical Impression: Transient hypotension, Atrial flutter, Acute dehydration, History of diabetes mellitus, Chronic anticoagulation Instructions: ED Dehydration (Adult), ED Low Blood Pressure, All Causes Prescriptions: No Action diltiazem HCl 360 mg capsule,extended release 24hr 360 mg PO DAILY Qty: 90 0RF latanoprost 0.005 % drops 1 drp ophthalmic (eye) QPM ondansetron 4 mg tablet,disintegrating 4 mg PO Q8H PRN (Reason: nausea and vomiting) sertraline 100 mg tablet 100 mg PO DAILY acetaminophen 500 mg tablet 1,000 mg PO Q8H PRN PRN (Reason: fever or pain) albuterol sulfate 2.5 mg /3 mL (0.083 %) solution for nebulization 2.5 mg inhalation Q6H PRN (Reason: shortness of breath or wheezing) divalproex 125 mg capsule, delayed rel sprinkle 125 mg PO BID docusate sodium 100 mg tablet 100 mg PO BID metformin 500 mg tablet 500 mg PO DAILY metoprolol succinate 50 mg tablet extended release 24 hr 50 mg PO DAILY guaifenesin [Mucinex] 600 mg tablet extended release 12hr 600 mg PO Q12H PRN (Reason: cough) trazodone 50 mg tablet 50 mg PO BID PRN clonidine HCl 0.1 mg Tablet 0.1 mg PO Q8H lisinopril 40 mg Tablet 40 mg PO DAILY apixaban 5 mg Tablet 5 mg PO BID Ensure Compact Liquid 118 ml PO TIDCM Qty: 0 0RF magnesium hydroxide [Milk of Magnesia] 400 mg/5 mL Suspension 30 ml PO DAILY PRN (Reason: Constipation) Primary Care Provider: Ryan Barragan Referrals: Ryan Barragan MD [Primary Care Provider] - As Needed Activity Restrictions/Additional Instructions: Exam was unremarkable his blood pressure was fine the entire time in the emergency department. His labs showed a mild dehydration he was given a half a liter of saline bolus and then discharged back to the extended care facility. Labs otherwise are unremarkable. Print Language: [place] Disposition Disposition: Home, Self Care
[2024-02-14 22:19] LABS: Absolute Lymphocyte Count 1.62 X10^3/uL (0.83-4.51); Absolute Neutrophil Count 5.2 X10^3/uL (2.0-7.7); Basophil# 0.07 X10^3/uL; Basophil% 0.9 % (0-1); Eosinophil# 0.37 X10^3/uL; Eosinophils% 4.5 % (0-5); Hematocrit 34.4 % (40-54); Hemoglobin 11.1 g/dL (13.0-16.5); Lymphocyte # 1.62 X10^3/ul (0.83-4.51); Lymphocyte % 19.9 % (19-41); Mean Corp Hgb Conc 32.3 g/dL (32-36); Mean Corpuscular Hgb 29.1 pg (27.0-32.0); Mean Corpuscular Volume 90.1 fL (80-94); Mean Platelet Vol. 9.8 fl (6.2-12.0); Monocyte% 11.1 % (0-10); NRBC Flagged by Analyzer 0 % (0-5); Neutrophil # 5.15 X10^3/uL (2.7-7.7); Neutrophil % 63.2 % (47-70); Platelet Count 212 K/mm3 (150-450); RBC Distribution Width CV 15.8 % (11.6-14.6); Red Blood Count 3.82 M/mm3 (4.6-6.2); White Blood Count 8.1 K/mm3 (4.4-11.0)
[2024-02-14 22:42] LABS: ALB/GLOB Ratio 1.1 RATIO (0.9-2.4); AST(SGOT) 14 U/L (15-37); Alanine Aminotransfer ALT/SGPT 25 U/L (16-61); Albumin, Serum 3.9 g/dL (3.2-5.0); Alkaline Phosphatase 55 U/L (45-117); Anion Gap 7 (5-15); BUN 42 mg/dL (7-18); BUN/Creat Ratio 29.2 RATIO (10-20); Chloride 109 mmol/L (98-107); Creatinine, Serum 1.44 mg/dL (0.70-1.30); EST Glomerular Filtration Rate 51 mL/min (>60); Est Glom Filt Rate - Afr Amer 62 mL/min (>60); Estimated Creatinine Clearance 48.85 ml/min; Globulin 3.5 g/dL (2.2-4.2); Glucose 93 mg/dL (74-106); Potassium 4.4 mmol/L (3.5-5.1); Protein, Total 7.4 g/dL (6.4-8.2); Sodium Level 139 mmol/L (136-145); Troponin-I HS 23 pg/mL (3.0-78.0)
[2024-02-14 22:43] LABS: Lactic Acid 1.7 mmol/L (0.4-1.9)
--- NOTE | 2024-02-14 22:46 | ED.RN ---
THIS NURSE ASKED PT FOR URINE SAMPLE DR ORDERED. PT STATES IF YOU WANT A URINE SAMPLE TELL THAT DOCTOR HES GOING TO HAVE TO COME IN AND SQUEEZE IT OUT OF ME
[2024-02-14 23:43] VITALS: BP 148/85
[2024-02-15] MEDS: 0.9% Normal Saline (500mL Bag) 500 ML 999 ML IV (00:47)
[2024-02-15 01:05] VITALS: BP 174/87; PULSE 87; RESP 16; O2SAT 100
--- NOTE | 2024-02-15 01:06 | ED.RN ---
Patient requesting to sit at bedside to use urine to collect a sample. Patient has been explain by this RN we do not need a urine sample. You are being discharged. We are currently waiting for the ambulance company to pick you up and take you home. Patients states well the doctor told me I need to give a sample. RN states we do not need one that this time. patient at bedside. pt aggressively give me that bottle so I can take a piss. rn states there is no need to be rude. can you please say please? pt states you're being so damn difficult. Rn states I am just asking you to be polite. patient states youre 16 I don't have to say please to you. Rn states I am not 16 and you should be polite to everyone. patient states all you people here and there are just so rude to me. youre macedonian. Rn sternly informs patient you do not need to talk to me like this, I have already told you I am not macedonian or Turkish. please be respectful. patient yelling nurse. OVI Raines asking what the problem is. patient states Can you please just hand me the urinal. Yanna states why can you say please to me but not her? pt states all you damn people are so difficult and can't do what I ask. Rodríguez at bedside to de-escalate patient. Patient placed back in bed safely.
== END 2024-02-15 03:59 | disposition home or self-care (01) ==
PROVIDERS: Emergency Provider Emergency Medicine; PCP Family Medicine; Visit Provider Emergency Medicine
DX: I95.9 Hypotension, unspecified (principal); I50.9 Heart failure, unspecified; I11.0 Hypertensive heart disease with heart failure; I48.0 Paroxysmal atrial fibrillation; I48.92 Unspecified atrial flutter; E11.9 Type 2 diabetes mellitus without complications; E86.0 Dehydration; F41.9 Anxiety disorder, unspecified; G47.33 Obstructive sleep apnea (adult) (pediatric); M50.30 Other cervical disc degeneration, unspecified cervical region; Z88.0 Allergy status to penicillin; Z86.73 Personal history of transient ischemic attack (TIA), and cerebral infarction without residual deficits; Z79.84 Long term (current) use of oral hypoglycemic drugs; Z79.01 Long term (current) use of anticoagulants; Z79.899 Other long term (current) drug therapy
CPT/HCPCS: 71046; 80053; 83605; 84484; 85025; 93005; 96360; 99285; A4216

== ENCOUNTER → 2024-04-14 | Outpatient (CLI) | payer MEDICAID, SELFPAY ==
--- NOTE | 2024-04-14 13:12 | CT_ITS ---
EXAM: CT Chest Without Intravenous Contrast CLINICAL INDICATION: TECHNIQUE: Axial computed tomography images of the chest without intravenous contrast. This CT exam was performed using one or more of the following dose reduction techniques: automated exposure control, adjustment of the mA and/or kV according to patient size, and/or use of iterative reconstruction technique. COMPARISON: No relevant prior studies available. FINDINGS: ARTIFACTS: Motion artifact. LUNGS AND PLEURAL SPACES: Mild lung emphysema. Right upper lobe atelectasis or scarring. No pneumothorax. No significant effusion. HEART: Unremarkable. No cardiomegaly. No significant pericardial effusion. No significant coronary artery calcifications. BONES/JOINTS: Unremarkable. No acute fracture. No dislocation. SOFT TISSUES: Unremarkable. VASCULATURE: Scattered calcified atherosclerotic disease of aorta. No thoracic aortic aneurysm. LYMPH NODES: A few prominent mid lymph nodes measuring up to 6 mm. LIVER: Mild hepatomegaly. CT/Chest without Contrast IMPRESSION: 1. Mild lung emphysema. 2. Right upper lobe atelectasis or scarring. Reading Location: [facility]
== END | disposition home or self-care (01) ==
LOC: CT 13:10
PROVIDERS: PCP Family Medicine; Referring Provider Family Medicine; Visit Provider Family Medicine
DX: R91.1 Solitary pulmonary nodule (principal)
CPT/HCPCS: 71250

== ENCOUNTER 2024-04-20 15:57 | Emergency (ER) | payer MEDICAID, SELFPAY ==
[2024-04-20 15:58] VITALS: BP 86/51; PULSE 35; RESP 16; TEMP 36.5; O2SAT 99; BMI 27.6
--- NOTE | 2024-04-20 16:16 | EX.ED.DYSGE1 ---
HPI History of Present Illness Chief Complaint: Palpitations Detail of Chief Complaint: [facility] because of low heart rate Informant: patient Onset/Context/Timing Onset: - (Unknown) Context: - (Unknown) Timing: Continuous Quality: Patient's twelve-lead EKG from [facility] reveals atrial flutter with 5-1 block Location: Cardiovascular Current Severity: Moderate Maximum Severity: Moderate Worsened by: Patient is on metoprolol, clonidine, and diltiazem. Relieved by: Nothing Associated Symptoms Associated Symptoms: Patient has no symptoms Narrative Narrative: Patient is a 73-year-old male. He is DNR comfort care only. Confirmed that he is DNR comfort care only. He is alert he is oriented. He states he has absolutely no complaints. He was told that he should come per the nurse at the facility. Prior similar symptoms: No PFSH PFS Medical History Syncope and collapse Paroxysmal atrial fibrillation Type 2 diabetes mellitus Normocytic anemia Atrial flutter Fracture of first lumbar vertebra TIA (transient ischemic attack) Other cervical disc degeneration, unspecified cervical region Hyperlipidemia HTN (hypertension) Anxiety Atrial flutter Syncope and collapse YULIANA (obstructive sleep apnea) CHF (congestive heart failure) COVID-19 Anemia Home Medications ?Medication ?Instructions ?Recorded ?Last Taken ?Type apixaban 5 mg tablet 5 mg PO BID 01/08/22 Unknown History clonidine HCl 0.1 mg tablet 0.1 mg PO Q8H 01/08/22 Unknown History lisinopril 40 mg tablet 40 mg PO DAILY 01/08/22 Unknown History food supplemt, lactose-reduced 118 ml PO TIDCM #0 mL 01/13/22 Unknown Rx (Ensure Compact oral liquid) magnesium hydroxide 400 mg/5 mL 30 ml PO DAILY PRN Constipation 03/04/22 Unknown History oral suspension (Milk of Magnesia) diltiazem HCl 360 mg 360 mg PO DAILY #90 caps 04/01/22 Unknown Rx capsule,extended release 24 hr latanoprost 0.005 % eye drops 1 drp ophthalmic (eye) QPM 09/14/22 Unknown History ondansetron 4 mg disintegrating 4 mg PO Q8H PRN nausea and vomiting 09/14/22 Unknown History tablet sertraline 100 mg tablet 100 mg PO DAILY 09/14/22 Unknown History acetaminophen 500 mg tablet 1,000 mg PO Q8H PRN PRN fever or 04/01/23 Unknown History pain albuterol sulfate 2.5 mg/3 mL 2.5 mg inhalation Q6H PRN 04/01/23 Unknown History (0.083 %) solution for nebulization shortness of breath or wheezing divalproex 125 mg capsule,delayed 125 mg PO BID 04/01/23 Unknown History release sprinkle docusate sodium 100 mg tablet 100 mg PO BID 04/01/23 Unknown History guaifenesin 600 mg tablet, 600 mg PO Q12H PRN cough 04/01/23 Unknown History extended release 12 hr (Mucinex) metformin 500 mg tablet 500 mg PO DAILY 04/01/23 Unknown History metoprolol succinate 50 mg 50 mg PO DAILY 04/01/23 Unknown History tablet,extended release 24 hr trazodone 50 mg tablet 50 mg PO BID PRN 04/01/23 Unknown History Allergy/AdvReac Type Severity Reaction Status Date / Time amlodipine Allergy NEEDS Verified 02/14/24 21:37 FOLLOW-UP amoxicillin (From Amoxil) Allergy NEEDS Verified 02/14/24 21:37 FOLLOW-UP erythromycin base Allergy NEEDS Verified 02/14/24 21:37 FOLLOW-UP famotidine (From Pepcid) Allergy NEEDS Verified 02/14/24 21:37 FOLLOW-UP fish oil Allergy NEEDS Verified 02/14/24 21:37 FOLLOW-UP hydrochlorothiazide Allergy NEEDS Verified 02/14/24 21:37 FOLLOW-UP hydroxyzine Allergy NEEDS Verified 02/14/24 21:37 FOLLOW-UP lorazepam Allergy NEEDS Verified 02/14/24 21:37 FOLLOW-UP Surgical History H/O knee surgery Social History housing: [facility] Smoking Status: Never smoker alcohol intake: former substance use type: does not use ROS ROS ED Constitutional Constitutional ED: Denies chills or fever(s) Eyes Eyes: Denies blurry vision or change in vision Cardiovascular Cardiovascular: Denies chest pain or palpitations Respiratory/Chest Respiratory/Chest: Denies cough, dyspnea or dyspnea on exertion Gastrointestinal Gastrointestinal: Denies nausea or vomiting Integumentary Denies rash Neurologic Neurologic: Denies headache(s) Endocrine Endocrinology: Denies cold intolerance or heat intolerance EXAM Physical Exam Const Vital Signs: 04/20/24 15:58 Temperature 97.7 F L Temperature Source Temporal Pulse Rate 35 L Respiratory Rate 16 Blood Pressure 86/51 L Blood Pressure Mean 62 Pulse Ox 99 Oxygen Delivery Method Room Air Vital signs are remarkable for heart rate of 35 and blood pressure of 85/51. Positive well nourished and well developed General Appearance ED: well developed, NAD and pallor; Negative for cyanotic or diaphoretic HEENT Reports moist mucous membranes HEENT Narrative: Head is atraumatic normocephalic. Patient has temporal wasting. Eyes PERRL and EOMs intact bilaterally Eyes Narrative: There is no nystagmus. General Eye ED: Negative for pale conjunctiva Neck no lymphadenopathy and supple Chest Wall inspection of chest normal and palpation of chest normal Resp normal respiratory effort and clear to auscultation bilaterally Cardio regular rhythm, S1 normal heart sound, S2 normal heart sound and no murmurs Rate: bradycardia GI non-tender, non-distended and no masses; Negative for hepatosplenomegaly Back/Spine no CVA tenderness Extremity normal to inspection Neuro oriented x3 and CN's II-XII intact bilaterally Sensorium / Orientation: alert Psych mental status grossly normal Skin General Skin Exam: pallor; Negative for elasticity normal or jaundice MDM MDM MDM Narrative Medical decision making narrative: Patient is DNR comfort care only. Patient has atrial flutter with 5-1 block and a heart rate of 32 on the monitor. Complexes are narrow. Confirmed that he is DNR comfort care. Patient is on metoprolol which can cause bradycardia specially since it may interact with the diltiazem that he is on. The metoprolol is low dose of 25. Clonidine can cause central bradycardia. Since patient is DNR comfort care this was honored no labs were drawn. Recommendation is discontinue the clonidine. Discontinued the diltiazem until heart rate is above 60. Would then recommend either increasing metoprolol or placing patient on a much lower dose of diltiazem. History & Record Review Additional record(s) reviewed:: Prior outpatient record (Report for outside facility for pulmonary nodule April 04 and no workup was undertaken) and Prior ED visit (ER visit for dehydration and admission February 14, 2024.) Discharge Plan Triage Chief Complaint: Palpitations ED Provider: Gary Saul Dx/Rx/DC Orders Clinical Impression: Atypical atrial flutter, HTN (hypertension), Hyperlipidemia, Bradycardia, DNR (do not resuscitate) discussion, DNR (do not resuscitate), Acute hypotension Instructions: ED Atrial Flutter Prescriptions: No Action diltiazem HCl 360 mg capsule,extended release 24hr 360 mg PO DAILY Qty: 90 0RF latanoprost 0.005 % drops 1 drp ophthalmic (eye) QPM ondansetron 4 mg tablet,disintegrating 4 mg PO Q8H PRN (Reason: nausea and vomiting) sertraline 100 mg tablet 100 mg PO DAILY acetaminophen 500 mg tablet 1,000 mg PO Q8H PRN PRN (Reason: fever or pain) albuterol sulfate 2.5 mg /3 mL (0.083 %) solution for nebulization 2.5 mg inhalation Q6H PRN (Reason: shortness of breath or wheezing) divalproex 125 mg capsule, delayed rel sprinkle 125 mg PO BID docusate sodium 100 mg tablet 100 mg PO BID metformin 500 mg tablet 500 mg PO DAILY metoprolol succinate 50 mg tablet extended release 24 hr 50 mg PO DAILY guaifenesin [Mucinex] 600 mg tablet extended release 12hr 600 mg PO Q12H PRN (Reason: cough) trazodone 50 mg tablet 50 mg PO BID PRN clonidine HCl 0.1 mg Tablet 0.1 mg PO Q8H lisinopril 40 mg Tablet 40 mg PO DAILY apixaban 5 mg Tablet 5 mg PO BID Ensure Compact Liquid 118 ml PO TIDCM Qty: 0 0RF magnesium hydroxide [Milk of Magnesia] 400 mg/5 mL Suspension 30 ml PO DAILY PRN (Reason: Constipation) Primary Care Provider: Ryan Barragan Referrals: Ryan Barragan MD [Primary Care Provider] - 3-5 Days Activity Restrictions/Additional Instructions: 1. Discontinue clonidine since this works centrally and can cause bradycardia 2. Discontinue the diltiazem since this and metoprolol which is a beta-lorraine can interact and cause high-grade block and reason for his bradycardia. 3. Recommend resuming diltiazem once heart rate is greater than 60 and starting at a much lower dose to be discussed with patient's physician at the nursing facility or increasing his metoprolol dose. Print Language: Citizen [place] Disposition Disposition: Long Term Facility Discharge Location: [facility]
[2024-04-20 17:58] VITALS: BP 110/57; PULSE 41; RESP 18; O2SAT 98
--- NOTE | 2024-04-20 18:16 | NURSING ---
Report called to [facility] at [facility]
[2024-04-20 18:43] VITALS: BP 110/57; PULSE 41; RESP 18; TEMP 36.5; O2SAT 98
== END 2024-04-20 18:54 | disposition skilled nursing facility (03) ==
LOC: ED 16:32
PROVIDERS: Emergency Provider Emergency Medicine; PCP Family Medicine; Visit Provider Emergency Medicine
DX: I48.92 Unspecified atrial flutter (principal); I11.0 Hypertensive heart disease with heart failure; I50.9 Heart failure, unspecified; I48.0 Paroxysmal atrial fibrillation; E11.9 Type 2 diabetes mellitus without complications; I95.9 Hypotension, unspecified; R00.2 Palpitations; Z66 Do not resuscitate; E78.5 Hyperlipidemia, unspecified; D64.9 Anemia, unspecified; F41.9 Anxiety disorder, unspecified; G47.33 Obstructive sleep apnea (adult) (pediatric); Z88.0 Allergy status to penicillin; Z86.73 Personal history of transient ischemic attack (TIA), and cerebral infarction without residual deficits; Z79.84 Long term (current) use of oral hypoglycemic drugs; Z79.01 Long term (current) use of anticoagulants; Z79.899 Other long term (current) drug therapy
CPT/HCPCS: 99284